=== PATIENT | female | born 1980 | race Caucasian/White ===

== ENCOUNTER 2019-10-09 14:51 | Outpatient (CLI) | payer OTHER, SELFPAY ==
[2019-10-09 16:22] LABS: Beta HCG Quantitative < 2.39 mIU/ML
== END 2019-10-09 14:52 | disposition home or self-care (01) ==
LOC: ANHLAB 14:55
PROVIDERS: PCP Internal Medicine; Visit Provider Student in an Organized Health Care Education/Training Program
DX: Z30.42 Encounter for surveillance of injectable contraceptive (principal)
CPT/HCPCS: 36415; 84702

== ENCOUNTER 2021-10-27 11:14 | Outpatient (CLI) | payer OTHER, SELFPAY ==
[2021-10-27 19:56] LABS: Hepatitis B Surface Antigen Negative (Negative)
[2021-10-27 20:06] LABS: HIV 1/2 Ab P24 Ag Result Negative (Negative)
[2021-10-27 20:14] LABS: Hepatitis C Virus Antibody Negative (Negative)
[2021-11-01 07:15] LABS: Rapid Plasma Reagin Non-Reactive (NonReactive)
== END 2021-10-27 11:15 | disposition home or self-care (01) ==
LOC: ANHBWCLAB 11:14
PROVIDERS: PCP Internal Medicine; Visit Provider Student in an Organized Health Care Education/Training Program
DX: Z20.2 Contact with and (suspected) exposure to infections with a predominantly sexual mode of transmission (principal)
CPT/HCPCS: 36415; 86592; 86703; 86803; 87340; G0432

== ENCOUNTER 2023-10-25 08:19 | Day surgery (SDC) | payer OTHER, SELFPAY ==
[2023-10-17 09:29] VITALS: BMI 30.3
[2023-10-17 10:27] VITALS: BMI 30.1
[2023-10-25 09:30] VITALS: BP 135/94; PULSE 81; RESP 20; TEMP 36.7; O2SAT 99
--- NOTE | 2023-10-25 09:43 | WPDHPUPDATE1 ---
History and Physical Update Update Date/Time: 10/25/23 09:43 History and Physical has been reviewed, including an updated exam of the patient. There are NO changes in the patient's condition. Risks, benefits, and alternatives have been discussed and questions answered. Patient agrees to proceed with procedure.
[2023-10-25] MEDS: LACTATED RINGERS 1,000 ML 150 ML IV CONT (09:45)
--- NOTE | 2023-10-25 09:54 | WPDANESEPPF ---
Anes - Initial Pre Proc Eval Procedure: Operation Date: 10/25/23 10:30 Proposed Procedures p Colonoscopy - Ernie Escoto MD Date/Time: 10/25/23 09:54 Surgeon: Ernie Escoto MD Pre Op Diagnosis: Left lower quadrant pain, IBS w/constipation, Patient Data Age: 43 Gender: F Height: 1.6 m Weight: 73.1 kg Last Vital Signs Temp 36.7 C 10/25/23 09:30 Pulse 81 10/25/23 09:30 Resp 20 10/25/23 09:30 BP 135/94 H 10/25/23 09:30 Pulse Ox 99 10/25/23 09:30 O2 Del Method Room Air 10/25/23 09:30 Allergies Allergy/AdvReac Type Severity Reaction Status Date / Time morphine Allergy Severe Itching Verified 10/25/23 09:24 Home Medications Medication Instructions Recorded Confirmed Type dicyclomine 10 mg capsule 10 mg PO BID 01/30/20 10/25/23 History cetirizine 10 mg capsule (All Day 10 mg PO DAILY PRN Allergy Symptoms 10/16/23 10/25/23 History Allergy (cetirizine)) sodium,potassium,mag sulfates 17.5 See Rx Instructions PO .COMPLEX 10/17/23 10/25/23 Rx gram-3.13 gram-1.6 gram oral soln #354 mL (Suprep Bowel Prep Kit) Patient hx anesthesia problems: none Family hx anesthesia problems: none Results Review: All pre-operative results and documents have been reviewed as part of the pre-operative evaluation. [facility] Past Medical History Medical History Abnormal CT scan, colon Colitis Diverticulosis Irritable bowel syndrome with constipation Obesity Stomach ulcer Vaginal delivery x 2 Surgical History Surgical History H/O sinus surgery History of dilation and curettage x 3 History of hysterectomy including cervix History of tubal ligation Family History Family History Father Hypertension Family history of congestive heart failure Social History Social History Smoking status: Former smoker Second hand tobacco smoke exposure: No Smoking end date: 09/11/10 Alcohol intake: never Substance use: never Substance use type: does not use Lack of Transportation: No Lack of Food: Never True Current Housing: I Have Housing Concerned About Future Housing: No Difficulty Paying Gas/Electric Bills: No Difficulty Paying for Meds: No Currently Unemployed: No Education: High School Diploma/GED Difficulty w/ Childcare or Family Care: No Living arrangements: with family Spiritual care concerns: No Anes - Eval Final PreProcedure Day of Procedure 10/25/23 09:54 Patient weight: overweight Heart: regular rate and rhythm Lungs: clear to auscultation Airway: Mallampati scale class 1 Neurological: alert and oriented Last oral intake: >/= 8 hours ASA classification: II Emergent: no Anesthetic plan: proceed Anesthesia type and monitoring: general GIVS and standard monitoring Results Review: All pre-operative results and documents have been reviewed as part of the pre-operative evaluation. Informed Consent: The patient's anesthetic plan and its attendant risks and benefits were discussed with the patient/family/POA. Questions were solicited and answers provided to the satisfaction of the patient/family/POA.
[2023-10-25 10:29] VITALS: BP 109/67; PULSE 80; RESP 16; O2SAT 100
--- NOTE | 2023-10-25 10:38 | WPDANESPN ---
Anes - Prog Note Post-Op Date/Time: 10/25/23 10:38 Cardiovascular status: normal Respiratory status: normal Airway patency: baseline Mental status: baseline Post-Op hydration status: normal Vital Signs: Last Vital Signs Temp 36.7 C 10/25/23 09:30 Pulse 81 10/25/23 09:30 Resp 20 10/25/23 09:30 BP 135/94 H 10/25/23 09:30 Pulse Ox 99 10/25/23 09:30 O2 Del Method Room Air 10/25/23 09:30 Pain Score (VAS): 0/10 I/O: Intake & Output 10/24/23 10/25/23 10/25/23 23:59 07:59 15:59 Intake Total 500 Balance 500 Patient Feedback: Patient satisfied with anesthetic care.
[2023-10-25 10:39] VITALS: BP 108/74; PULSE 80; RESP 16; O2SAT 100
[2023-10-25 10:49] VITALS: BP 123/78; PULSE 72; RESP 16; O2SAT 100
== END 2023-10-25 11:05 | disposition home or self-care (01) ==
PROVIDERS: PCP Internal Medicine; Visit Provider Internal Medicine Gastroenterology
PROC: 0DJD8ZZ Inspection of Lower Intestinal Tract, Via Natural or Artificial Opening Endoscopic (ICD-10-PCS; CPT 45378; principal; 2023-10-25 10:30)
DX: R10.32 Left lower quadrant pain (principal); K57.30 Diverticulosis of large intestine without perforation or abscess without bleeding; K64.8 Other hemorrhoids
CPT/HCPCS: 45378

== ENCOUNTER 2024-04-22 07:33 | Outpatient (CLI) | payer OTHER, SELFPAY ==
--- NOTE | ~2024-04-22 | CT_ITS ---
CT abdomen pelvis w con Ordering provider: Kerry Delgado APRN History: 43 years Female with . R10.32 - Left lower quadrant pain . Comparison: None. Technique: CT abdomen and pelvis with IV and without oral contrast. Automated exposure control and it erative reconstruction technique were employed. The dose-length product was 609.18 mGy-cm. 100 mL Omn ipaque 350 was given IV. Findings: VISUALIZED LOWER CHEST: Dependent atelectatic changes. UPPER ABDOMINAL ORGANS: Liver: Hepatomegaly. Hypodensity with faint peripheral enhancement is seen which measures 3 x 2.6 cm most likely represent a hemangioma seen in segment #6. Follow-up advised. Gallbladder: Normal. Spleen: Normal. Stomach/duodenum: Normal. Pancreas: Normal. Adrenals: Normal. Kidneys: Tiny cyst in the right kidney upper pole. PELVIC ORGANS: The bladder is underfilled.. BOWEL AND MESENTERY: Colon: No evidence of diverticulitis. Fecal material is loaded in the colon. No evidence of appendici tis. Small Bowel: Normal. No obstruction. Peritoneum/mesentery: No free air or free fluid. No mesenteric lymphadenopathy. RETROPERITONEUM: Normal aorta. No retroperitoneal lymphadenopathy. MUSCULOSKELETAL: Superficial soft tissues: The superficial soft tissues are normal. Bones: Age appropriate degenerative changes of the spine. IMPRESSION: 1. No acute abdominal process with no evidence of appendicitis, diverticulitis or intestinal obstruc tion. 2. Highly suggestive hemangioma in the liver. Follow-up advised. 3. Constipation. 4. Hepatomegaly Reviewed, dictated and finalized at location A. IMPRESSION: 1. No acute abdominal process with no evidence of appendicitis, diverticulitis or intestinal obstruction. 2. Highly suggestive hemangioma in the liver. Follow-up advised. 3. Constipation. 4. Hepatomegaly
== END 2024-04-22 07:34 | disposition home or self-care (01) ==
PROVIDERS: PCP Internal Medicine; Visit Provider Nurse Practitioner
DX: R16.0 Hepatomegaly, not elsewhere classified (principal); K59.00 Constipation, unspecified
CPT/HCPCS: 74177; Q9967

== ENCOUNTER 2025-02-19 01:23 | Day surgery (SDC) | payer OTHER, SELFPAY ==
[2025-02-07 13:05] VITALS: BMI 27.6
--- OUTSIDE RECORDS SUMMARY | 2025-02-19 01:26 | XMS_ITS | Data Portability ---
Author Organization [facility] [place], Main Office Address [address] [place] [address] Assessment Encounter Date Assessment Date Assessment LastModified by Organization Details LastModified Time 02/02/2023 02/02/2023 This note is dictated and transcribed by [employer]. [employer] Operator variances may occur. Despite proofreading, typographical errors may occur. [email or web address] Not available 02/02/2023 16:53:02 Plan of Treatment Reminders Order Date Submit Date Provider Last Modified By Organization Details Last Modified Time Details Appointments None record ed. Lab None record ed. Referral None record ed. Procedures None record ed. Surgeries None record ed. Imaging XR, foot, 3 or more view 023 02/03/20 23 [email or web address] [facility] [place], [address] [place] [address], [address], 3 16:14:28 XR, foot, 3 or more view 023 02/03/20 23 [email or web address] [facility] [place], [address] [place] [address], [place], [address], 3 16:14:28 Medication Orders None record ed. Patient TargetsNo targets recorded. Patient InstructionsNo instructions recorded. Reason for Referral None Reported. Results Created Date Observation Date Name Description Value Unit Range Abnormal Flag Note LastModifiedBy Organization Detail LastModifiedTime 03/31/20 21 03/31/2021 TSH thyroid-stim ulating hormone 1.050 uIU/m L 0.465- 4.680 Not Available [facility] (Lab) [address] [place], [address], 03/31/2021 18:24:22 03/31/20 21 03/31/2021 T4 FREE free T4 0.88 NG/dL 0.78-2 .19 Not Available [facility] (Lab) [address] [place], [address], 03/31/2021 18:12:50 03/31/2003/31/2021 T3 FREE free T3 3.5 pg/mL 2.77-5 .27 Not Available [facility] (Lab) [address] [place], [address], 03/31/2021 18:12:45 03/31/2003/31/2021 LIPID PANEL cholesterol 179 mg/dL 140-19 9 NIH EDU NSUS RECOM MENDA TION FOR RENAY STERO L: ADULT CHILD LOW RISK: <200 <170 BORDE RLINE : <200- 239 ----- HIGH RISK: >240 >200 Not Available [facility] (Lab) [address] [place], [address], 03/31/2021 18:11:24 03/31/2003/31/2021 LIPID PANEL triglyceride s 169 mg/dL 0-150 high NIH EDU NSUS REPOR T RECOM MENDA TION FOR TRIGL YCERI MORENITA: ADULT CHILD LOW RISK: <150 ----- BODER LINE: 150-1 99 ----- HIGH RISK: >200 ----- Not Available [facility] (Lab) [address] [place], [address], 03/31/2021 18:11:24 03/31/2003/31/2021 LIPID PANEL HDL cholesterol 54 mg/dL 40- Not Available [facility] (Lab) [address] [place], [address], 03/31/2021 18:11:24 03/31/2003/31/2021 LIPID PANEL LDL cholesterol, calculated 91 mg/dL 0-130 NIH EDU NSUS REPOR T RECOM MENDA TIONS FOR LDL: ADULT CHILD LOW RISK <130 <110 (OPTI MAL LDL) <100 ----- BORDE RLINE : 130-1 59 ----- HIGH RISK: >160 >130 A TRIGL YCERI DE RESUL T >400 INVAL IDATE S THE CALCU LATIO N FOR LDL FRACT IONAT ION - THE LDL RESUL T WILL NOT BE REPOR CLAUDETTE. Not Available [facility] (Lab) [address] [place], [address], 03/31/2021 18:11:24 03/31/20 21 03/31/2021 COMPR EHENS MOLLY METAB OLIC PANEL aspartate aminotransfe rase 21 U/L 15-37 Not Available [facility] (Lab) [address] [place], [address], 03/31/2021 18:11:19 03/31/2003/31/2021 COMPR EHENS MOLLY METAB OLIC PANEL GFR >60 Refer ence Range : Ravalli ge GFR Healt hy Adult : >60 mL/mi n/1.7 3 m2 Chron ic Kidne y Disea se: 15-60 mL/mi n/1.7 3 m2 Kidne y Failu re: <15/m L/min /1.73 m2 www.n iddk. nih.g ov MDRD study equat ion hasn' t been valid ated in child paulino <18 yrs of age, pregn ant women , the elder ly >85 yrs of age, or in some racia l or ethni c subgr oups, suc as Hispa nics. Outsi de the valid ated carlos eters , estim ated GFR is less accur ate requi ring clini edward judgm ent on a case by case basis . Clini edward inter preta tion for other races and ages must be made by the clini ludy . Futhe rmore , any of th e limit ation s with the use of serum creat inine relat ed to nutri jong l statu s o r medic ation usage hasn' t accou nted for the MDRD Study equat ion. For perso ns < 18 yrs of age, a pedia tric GFR calcu lator can be locat ed on the [facility] websi te: https ://leticia calzada.sierra guard[facility]/cole mustafa s/kdo qi/gf r_cal culat or Not Available [facility] (Lab) [address] [place], [address], 03/31/2021 18:11:19 03/31/20 21 03/31/2021 COMPR EHENS MOLLY METAB OLIC PANEL alkaline phosphatase 60 U/L 38-126 Not Available [facility] (Lab) [address] [place], [address], 03/31/2021 18:11:19 03/31/2003/31/2021 COMPR EHENS MOLLY METAB OLIC PANEL alanine aminotransfe rase 12 U/L 0-35 Not Available [facility] (Lab) [address] [place], [address], 03/31/2021 18:11:19 03/31/20 21 03/31/2021 COMPR EHENS MOLLY METAB OLIC PANEL bilirubin, total 0.50 mg/dL 0.20-1 .30 Not Available [facility] (Lab) [address] [place], [address], 03/31/2021 18:11:19 03/31/2003/31/2021 COMPR EHENS MOLLY METAB OLIC PANEL calcium 9.0 mg/dL 8.4-10 .2 Not Available [facility] (Lab) [address] [place], [address], 03/31/2021 18:11:19 03/31/2003/31/2021 COMPR EHENS MOLLY METAB OLIC PANEL total protein 6.8 g/dL 6.3-8. 2 Not Available [facility] (Lab) [address] [place], [address], 03/31/2021 18:11:19 03/31/20 21 03/31/2021 COMPR EHENS MOLLY METAB OLIC PANEL albumin 4.2 g/dL 3.4-5. 0 Not Available [facility] (Lab) [address] [place], [address], 03/31/2021 18:11:19 03/31/20 21 03/31/2021 COMPR EHENS MOLLY METAB OLIC PANEL globulin 2.6 g/dL 2.6-4. 2 Not Available [facility] (Lab) [address] [facility], [address], 03/31/2021 18:11:19 03/31/20 21 03/31/2021 COMPR EHENS MOLLY METAB OLIC PANEL A/G ratio 1.6 ratio 1.0-2. 0 Not Available [facility] (Lab) [address] [place], [address], 03/31/2021 18:11:19 03/31/20 21 03/31/2021 COMPR EHENS MOLLY METAB OLIC PANEL carbon dioxide 25 mmol/ L 22-30 Not Available [facility] (Lab) [address] [place], [address], 03/31/2021 18:11:19 03/31/20 21 03/31/2021 COMPR EHENS MOLLY METAB OLIC PANEL sodium 138 mmol/ L 137-14 5 Not Available [facility] (Lab) [address] [place], [address], 03/31/2021 18:11:19 03/31/20 21 03/31/2021 COMPR EHENS MOLLY METAB OLIC PANEL potassium 4.2 mmol/ L 3.5-5. 1 Not Available [facility] (Lab) [address] [place], [address], 03/31/2021 18:11:19 03/31/20 21 03/31/2021 COMPR EHENS MOLLY METAB OLIC PANEL chloride 105 mmol/ L 98-107 Not Available [facility] (Lab) [address] [place], [address], 03/31/2021 18:11:19 03/31/20 21 03/31/2021 COMPR EHENS MOLLY METAB OLIC PANEL agap 12.2 mmol/ L 14-22 low Not Available [facility] (Lab) [address] [place], [address], 03/31/2021 18:11:19 03/31/20 21 03/31/2021 COMPR EHENS MOLLY METAB OLIC PANEL glucose 93 mg/dL 70-99 Not Available [facility] (Lab) [address] [place], [address], 03/31/2021 18:11:19 03/31/20 21 03/31/2021 COMPR EHENS MOLLY METAB OLIC PANEL BUN 13 mg/dL 8-19 Not Available [facility] (Lab) [address] [place], [address], 03/31/2021 18:11:19 03/31/2003/31/2021 COMPR EHENS MOLLY METAB OLIC PANEL creatinine 0.71 mg/dL 0.66-1 .25 Not Available [facility] (Lab) [address] [place], [address], 03/31/2021 18:11:19 03/31/2003/31/2021 CBC/C OMPLE TE BLD COUNT W/DIF F mean RBC HGB concentratio n 34.6 g/dL 31.0-3 6.0 Not Available [facility] (Lab) [address] [place], [address], 03/31/2021 17:42:42 03/31/20 21 03/31/2021 CBC/C OMPLE TE BLD COUNT W/DIF F white blood cells 7.0 x10'3 /uL 4.2-10 .8 Not Available [facility] (Lab) [address] [place], [address], 03/31/2021 17:42:42 03/31/20 21 03/31/2021 CBC/C OMPLE TE BLD COUNT W/DIF F red blood cells 4.48 x10'6 /uL 3.80-5 .20 Not Available [facility] (Lab) [address] [place], [address], 03/31/2021 17:42:42 03/31/20 21 03/31/2021 CBC/C OMPLE TE BLD COUNT W/DIF F hemoglobin 13.8 g/dL 12.0-1 5.6 Not Available [facility] (Lab) [address] [place], [address], 03/31/2021 17:42:42 03/31/2003/31/2021 CBC/C OMPLE TE BLD COUNT W/DIF F hematocrit 39.9 % 35.7-4 5.7 Not Available [facility] (Lab) [address] [place], [address], 03/31/2021 17:42:42 03/31/2003/31/2021 CBC/C OMPLE TE BLD COUNT W/DIF F mean red cell volume 89.1 fL 82.0-9 9.0 Not Available [facility] (Lab) [address] [place], [address], 03/31/2021 17:42:42 03/31/2003/31/2021 CBC/C OMPLE TE BLD COUNT W/DIF F mean red cell hemoglobin 30.8 pg 27.0-3 3.0 Not Available [facility] (Lab) [address] [place], [address], 03/31/2021 17:42:42 03/31/20 21 03/31/2021 CBC/C OMPLE TE BLD COUNT W/DIF F red cell distribution width 11.9 % 11.8-1 5.5 Not Available [facility] (Lab) [address] [place], [address], 03/31/2021 17:42:42 03/31/20 21 03/31/2021 CBC/C OMPLE TE BLD COUNT W/DIF F platelets 256 x10'3 /uL 150-40 0 Not Available [facility] (Lab) [address] [place], [address], 03/31/2021 17:42:42 03/31/20 21 03/31/2021 CBC/C OMPLE TE BLD COUNT W/DIF F mean platelet volume 10.7 fL 9.0-12 .4 Not Available [facility] (Lab) [address] [place], [address], 03/31/2021 17:42:42 03/31/20 21 03/31/2021 CBC/C OMPLE TE BLD COUNT W/DIF F neutrophils 71.9 % 39.0-7 2.0 Not Available [facility] (Lab) [address] [place], [address], 03/31/2021 17:42:42 03/31/20 21 03/31/2021 CBC/C OMPLE TE BLD COUNT W/DIF F lymphocytes 14.6 % 16.0-4 7.0 low Not Available [facility] (Lab) [address] [place], [address], 03/31/2021 17:42:42 03/31/20 21 03/31/2021 CBC/C OMPLE TE BLD COUNT W/DIF F monocytes 7.5 % 5.0-12 .0 Not Available [facility] (Lab) [address] [place], [address], 03/31/2021 17:42:42 03/31/20 21 03/31/2021 CBC/C OMPLE TE BLD COUNT W/DIF F eosinophils 5.2 % 1.0-7. 0 Not Available [facility] (Lab) [address] [facility] [place], [address], 03/31/2021 17:42:42 03/31/2003/31/2021 CBC/C OMPLE TE BLD COUNT W/DIF F basophils 0.4 % 0.0-2. 0 Not Available [facility] (Lab) [address] [place], [address], 03/31/2021 17:42:42 03/31/20 21 03/31/2021 CBC/C OMPLE TE BLD COUNT W/DIF F immature granulocytes 0.4 % 0.00-0 .50 Not Available [facility] (Lab) [address] [place], [address], 03/31/2021 17:42:42 03/31/2003/31/2021 CBC/C OMPLE TE BLD COUNT W/DIF F neutrophils, absolute count 5.01 x10'3 /uL 1.5-8. 0 Not Available [facility] (Lab) [address] [place], [address], 03/31/2021 17:42:42 03/31/20 21 03/31/2021 CBC/C OMPLE TE BLD COUNT W/DIF F lymphocytes, absolute count 1.02 x10'3 /uL 1.07-3 .43 low Not Available [facility] (Lab) [address] [place], [address], 03/31/2021 17:42:42 03/31/2003/31/2021 CBC/C OMPLE TE BLD COUNT W/DIF F monocytes, absolute count 0.52 x10'3 /uL 0.29-0 .99 Not Available [facility] (Lab) [address] [place], [address], 03/31/2021 17:42:42 03/31/20 21 03/31/2021 CBC/C OMPLE TE BLD COUNT W/DIF F eosinophils, absolute count 0.36 x10'3 /uL 0.02-0 .53 Not Available [facility] (Lab) [address] [place], [address], 03/31/2021 17:42:42 03/31/20 21 03/31/2021 CBC/C OMPLE TE BLD COUNT W/DIF F basophils, absolute count 0.03 x10'3 /uL 0.01-0 .08 Not Available [facility] (Lab) [address] [place], [address], 03/31/2021 17:42:42 03/31/20 21 03/31/2021 CBC/C OMPLE TE BLD COUNT W/DIF F immature granulocytes ,absolute 0.03 x10'3 /uL 0.00-0 .05 Not Available [facility] (Lab) [address] [place], [address], 03/31/2021 17:42:42 03/31/20 21 03/31/2021 CBC/C OMPLE TE BLD COUNT W/DIF F nucleated red blood cells 0.0 % -0 Not Available [facility] (Lab) [address] [place], [address], 03/31/2021 17:42:42 03/31/20 21 03/31/2021 CBC/C OMPLE TE BLD COUNT W/DIF F NRBC# 0.00 x10'3 /uL Not Available [facility] (Lab) [address] [place], [address], 03/31/2021 17:42:42 08/18/2008/18/2021 INFLU TATE A/B ANTIG EN RAPID flu A negati ve negati ve Not Available [facility] (Lab) [address] [place], [address], 08/18/2021 13:42:50 08/18/2008/18/2021 INFLU TATE A/B ANTIG EN RAPID flu B negati ve negati ve THIS TEST CAN NOT DISTI NGUIS H INFLU TATE A VIRUS SUBTY PES. ALSO, PLEAS E NOTE THAT A NEGAT MOLLY RESUL T DOES NOT EXCLU DE INFLU TATE VIRUS INFEC TION. IF MORE CONCL USIVE TESTI NG IS ISAURO ED, FOLLO W-UP CONFI RMATO RY TESTI NG WITH RT-PC R IS SUGGE STED. Not Available [facility] (Lab) [address] [place], [address], 08/18/2021 13:42:50 08/18/20 21 08/18/2021 INFLU TATE A/B ANTIG EN RAPID valid QC positi ve Not Available [facility] (Lab) [address] [place], [address], 08/18/2021 13:42:50 08/18/20 21 08/18/2021 INFLU TATE A/B ANTIG EN RAPID lot # [id number] Not Available [facility] (Lab) [address] [place], [address], 08/18/2021 13:42:50 08/18/20 21 08/18/2021 INFLU TATE A/B ANTIG EN RAPID source certified travel counselor swab Not Available [facility] (Lab) [address] [place], [address], 08/18/2021 13:42:50 10/07/19 22 10/07/2021 TSH thyroid-stim ulating hormone 1.400 uIU/m L 0.465- 4.680 Not Available [facility] (Lab) [address] [place], [address], 10/07/2021 13:48:01 10/07/19 22 10/07/2021 T3 FREE free T3 3.5 pg/mL 2.77-5 .27 Not Available [facility] (Lab) [address] [place], [address], 10/07/2021 13:36:18 10/07/19 22 10/07/2021 T4 FREE free T4 1.03 NG/dL 0.78-2 .19 Not Available [facility] (Lab) [address] [place], [address], 10/07/2021 13:36:17 10/07/19 22 10/07/2021 COMPR EHENS MOLLY METAB OLIC PANEL bilirubin, total 0.50 mg/dL 0.20-1 .30 Not Available [facility] (Lab) [address] [facility] [place], [address], 10/07/2021 13:36:06 10/07/19 22 10/07/2021 COMPR EHENS MOLLY METAB OLIC PANEL GFR >60 Refer ence Range : Ravalli ge GFR Healt hy Adult : >60 mL/mi n/1.7 3 m2 Chron ic Kidne y Disea se: 15-60 mL/mi n/1.7 3 m2 Kidne y Failu re: <15/m L/min /1.73 m2 www.n iddk. nih.g ov The MDRD study equat ion has not been valid ated in child paulino <18 years of age; pregn ant women ; the elder ly >85 years of age; or in some racia l or ethni c subgr oups, such as Carline nics. Outsi de the valid ated carlos eters , estim ated GFR is less accur ate, requi ring clini edward judgm ent on a case- by-ca se basis . Clini edward inter preta tion for other races and ages must be made by the clini ludy. The MDRD study equat ion has not been valid ated for the evalu ation of serum creat inine relat ed to nutri jong l statu s or medic ation usage . For perso ns <18 years of age, a pedia tric GFR calcu lator is avail able on the F websi te: https ://leticia w.anita johnsony.o rg/pr ofess ional s/kdo qi/gf r_cal culat or Not Available [facility] (Lab) [address] [facility] [place], [address], 10/07/2021 13:36:06 10/07/19 22 10/07/2021 COMPR EHENS MOLLY METAB OLIC PANEL alkaline phosphatase 65 U/L 38-126 Not Available [facility] (Lab) [address] [place], [address], 10/07/2021 13:36:06 10/07/19 22 10/07/2021 COMPR EHENS MOLLY METAB OLIC PANEL alanine aminotransfe rase 17 U/L 0-35 Not Available [facility] (Lab) [address] [place], [address], 10/07/2021 13:36:06 10/07/19 22 10/07/2021 COMPR EHENS MOLLY METAB OLIC PANEL aspartate aminotransfe rase 22 U/L 15-37 Not Available [facility] (Lab) [address] [place], [address], 10/07/2021 13:36:06 10/07/19 22 10/07/2021 COMPR EHENS MOLLY METAB OLIC PANEL calcium 8.8 mg/dL 8.4-10 .2 Not Available [facility] (Lab) [address] [place], [address], 10/07/2021 13:36:06 10/07/19 22 10/07/2021 COMPR EHENS MOLLY METAB OLIC PANEL total protein 7.2 g/dL 6.3-8. 2 Not Available [facility] (Lab) [address] [place], [address], 10/07/2021 13:36:06 10/07/19 22 10/07/2021 COMPR EHENS MOLLY METAB OLIC PANEL albumin 4.4 g/dL 3.4-5. 0 Not Available [facility] (Lab) [address] [place], [address], 10/07/2021 13:36:06 10/07/19 22 10/07/2021 COMPR EHENS MOLLY METAB OLIC PANEL globulin 2.8 g/dL 2.6-4. 2 Not Available [facility] (Lab) [address] [facility] [place], [address], 10/07/2021 13:36:06 10/07/19 22 10/07/2021 COMPR EHENS MOLLY METAB OLIC PANEL A/G ratio 1.6 ratio 1.0-2. 0 Not Available [facility] (Lab) [address] [place], [address], 10/07/2021 13:36:06 10/07/19 22 10/07/2021 COMPR EHENS MOLLY METAB OLIC PANEL sodium 139 mmol/ L 137-14 5 Not Available [facility] (Lab) [address] [place], [address], 10/07/2021 13:36:06 10/07/19 22 10/07/2021 COMPR EHENS MOLLY METAB OLIC PANEL potassium 4.7 mmol/ L 3.5-5. 1 Not Available [facility] (Lab) [address] [place], [address], 10/07/2021 13:36:06 10/07/19 22 10/07/2021 COMPR EHENS MOLLY METAB OLIC PANEL chloride 108 mmol/ L 98-107 high Not Available [facility] (Lab) [address] [place], [address], 10/07/2021 13:36:06 10/07/19 22 10/07/2021 COMPR EHENS MOLLY METAB OLIC PANEL carbon dioxide 23 mmol/ L 22-30 Not Available [facility] (Lab) [address] [place], [address], 10/07/2021 13:36:06 10/07/19 22 10/07/2021 COMPR EHENS MOLLY METAB OLIC PANEL agap 12.7 mmol/ L 14-22 low Not Available [facility] (Lab) [address] [place], [address], 10/07/2021 13:36:06 10/07/19 22 10/07/2021 COMPR EHENS MOLLY METAB OLIC PANEL glucose 102 mg/dL 70-99 high Not Available [facility] (Lab) [address] [place], [address], 10/07/2021 13:36:06 10/07/19 22 10/07/2021 COMPR EHENS MOLLY METAB OLIC PANEL BUN 13 mg/dL 8-19 Not Available [facility] (Lab) [address] [place], [address], 10/07/2021 13:36:06 10/07/19 22 10/07/2021 COMPR EHENS MOLLY METAB OLIC PANEL creatinine 0.72 mg/dL 0.66-1 .25 Not Available [facility] (Lab) [address] [place], [address], 10/07/2021 13:36:06 10/07/19 22 10/07/2021 LIPID PANEL cholesterol 212 mg/dL 140-19 9 high NIH EDU NSUS RECOM MENDA TION FOR RENAY STERO L: ADULT CHILD LOW RISK: <200 <170 BORDE RLINE : <200- 239 ----- HIGH RISK: >240 >200 Not Available [facility] (Lab) [address] [place], [address], 10/07/2021 13:36:02 10/07/1910/07/2021 LIPID PANEL triglyceride s 72 mg/dL 0-150 NIH EDU NSUS REPOR T RECOM MENDA TION FOR TRIGL YCERI MORENITA: ADULT CHILD LOW RISK: <150 ----- BODER LINE: 150-1 99 ----- HIGH RISK: >200 ----- Not Available [facility] (Lab) [address] [place], [address], 10/07/2021 13:36:02 10/07/19 22 10/07/2021 LIPID PANEL HDL cholesterol 60 mg/dL 40- Not Available [facility] (Lab) [address] [place], [address], 10/07/2021 13:36:02 10/07/19 22 10/07/2021 LIPID PANEL LDL cholesterol, calculated 138 mg/dL 0-130 high NIH EDU NSUS REPOR T RECOM MENDA TIONS FOR LDL: ADULT CHILD LOW RISK <130 <110 (OPTI MAL LDL) <100 ----- BORDE RLINE : 130-1 59 ----- HIGH RISK: >160 >130 A TRIGL YCERI DE RESUL T >400 INVAL IDATE S THE CALCU LATIO N FOR LDL FRACT IONAT ION - THE LDL RESUL T WILL NOT BE REPOR CLAUEDTTE. Not Available [facility] (Lab) [address] [place], [address], 10/07/2021 13:36:02 10/07/19 22 10/07/2021 VITAM IN D 25-HY DROXY [id number] 36.3 NG/mL 30-100 Vitam in D Statu s: Defic ient: <20 ng/mL Insuf ficie nt: 20-29 ng/mL Suffi cient : 30-10 0 ng/mL Not Available [facility] (Lab) [address] [place], [address], 10/07/2021 13:35:54 10/07/19 22 10/07/2021 CBC/C OMPLE TE BLD COUNT W/DIF F hematocrit 42.0 % 35.7-4 5.7 Not Available [facility] (Lab) [address] [place], [address], 10/07/2021 13:05:49 10/07/19 22 10/07/2021 CBC/C OMPLE TE BLD COUNT W/DIF F white blood cells 6.8 x10'3 /uL 4.2-10 .8 Not Available [facility] (Lab) [address] [place], [address], 10/07/2021 13:05:49 10/07/19 22 10/07/2021 CBC/C OMPLE TE BLD COUNT W/DIF F red blood cells 4.64 x10'6 /uL 3.80-5 .20 Not Available [facility] (Lab) [address] [place], [address], 10/07/2021 13:05:49 10/07/19 22 10/07/2021 CBC/C OMPLE TE BLD COUNT W/DIF F hemoglobin 14.3 g/dL 12.0-1 5.6 Not Available [facility] (Lab) [address] [place], [address], 10/07/2021 13:05:49 10/07/19 22 10/07/2021 CBC/C OMPLE TE BLD COUNT W/DIF F mean red cell volume 90.5 fL 82.0-9 9.0 Not Available [facility] (Lab) [address] [place], [address], 10/07/2021 13:05:49 10/07/19 22 10/07/2021 CBC/C OMPLE TE BLD COUNT W/DIF F mean red cell hemoglobin 30.8 pg 27.0-3 3.0 Not Available [facility] (Lab) [address] [place], [address], 10/07/2021 13:05:49 10/07/19 22 10/07/2021 CBC/C OMPLE TE BLD COUNT W/DIF F mean RBC HGB concentratio n 34.0 g/dL 31.0-3 6.0 Not Available [facility] (Lab) [address] [place], [address], 10/07/2021 13:05:49 10/07/19 22 10/07/2021 CBC/C OMPLE TE BLD COUNT W/DIF F red cell distribution width 11.9 % 11.8-1 5.5 Not Available [facility] (Lab) [address] [place], [address], 10/07/2021 13:05:49 10/07/19 22 10/07/2021 CBC/C OMPLE TE BLD COUNT W/DIF F platelets 339 x10'3 /uL 150-40 0 Not Available [facility] (Lab) [address] [place], [address], 10/07/2021 13:05:49 10/07/19 22 10/07/2021 CBC/C OMPLE TE BLD COUNT W/DIF F mean platelet volume 10.5 fL 9.0-12 .4 Not Available [facility] (Lab) [address] [place], [address], 10/07/2021 13:05:49 10/07/19 22 10/07/2021 CBC/C OMPLE TE BLD COUNT W/DIF F neutrophils 58.3 % 39.0-7 2.0 Not Available [facility] (Lab) [address] [place], [address], 10/07/2021 13:05:49 10/07/19 22 10/07/2021 CBC/C OMPLE TE BLD COUNT W/DIF F lymphocytes 26.8 % 16.0-4 7.0 Not Available [facility] (Lab) [address] [place], [address], 10/07/2021 13:05:49 10/07/19 22 10/07/2021 CBC/C OMPLE TE BLD COUNT W/DIF F monocytes 6.6 % 5.0-12 .0 Not Available [facility] (Lab) [address] [place], [address], 10/07/2021 13:05:49 10/07/19 22 10/07/2021 CBC/C OMPLE TE BLD COUNT W/DIF F eosinophils 7.3 % 1.0-7. 0 high Not Available [facility] (Lab) [address] [place], [address], 10/07/2021 13:05:49 10/07/19 22 10/07/2021 CBC/C OMPLE TE BLD COUNT W/DIF F basophils 0.6 % 0.0-2. 0 Not Available [facility] (Lab) [address] [place], [address], 10/07/2021 13:05:49 10/07/19 22 10/07/2021 CBC/C OMPLE TE BLD COUNT W/DIF F immature granulocytes 0.4 % 0.00-0 .50 Not Available [facility] (Lab) [address] [place], [address], 10/07/2021 13:05:49 10/07/19 22 10/07/2021 CBC/C OMPLE TE BLD COUNT W/DIF F neutrophils, absolute count 3.99 x10'3 /uL 1.5-8. 0 Not Available [facility] (Lab) [address] [place], [address], 10/07/2021 13:05:49 10/07/19 22 10/07/2021 CBC/C OMPLE TE BLD COUNT W/DIF F lymphocytes, absolute count 1.83 x10'3 /uL 1.07-3 .43 Not Available [facility] (Lab) [address] [place], [address], 10/07/2021 13:05:49 10/07/19 22 10/07/2021 CBC/C OMPLE TE BLD COUNT W/DIF F monocytes, absolute count 0.45 x10'3 /uL 0.29-0 .99 Not Available [facility] (Lab) [address] [place], [address], 10/07/2021 13:05:49 10/07/19 22 10/07/2021 CBC/C OMPLE TE BLD COUNT W/DIF F eosinophils, absolute count 0.50 x10'3 /uL 0.02-0 .53 Not Available [facility] (Lab) [address] [place], [address], 10/07/2021 13:05:49 10/07/19 22 10/07/2021 CBC/C OMPLE TE BLD COUNT W/DIF F basophils, absolute count 0.04 x10'3 /uL 0.01-0 .08 Not Available [facility] (Lab) [address] [place], [address], 10/07/2021 13:05:49 10/07/19 22 10/07/2021 CBC/C OMPLE TE BLD COUNT W/DIF F immature granulocytes ,absolute 0.03 x10'3 /uL 0.00-0 .05 Not Available [facility] (Lab) [address] [place], [address], 10/07/2021 13:05:49 10/07/19 22 10/07/2021 CBC/C OMPLE TE BLD COUNT W/DIF F nucleated red blood cells 0.0 % -0 Not Available [facility] (Lab) [address] [place], [address], 10/07/2021 13:05:49 10/07/19 22 10/07/2021 CBC/C OMPLE TE BLD COUNT W/DIF F NRBC# 0.00 x10'3 /uL Not Available [facility] (Lab) [address] [place], [address], 10/07/2021 13:05:49 02/29/20 22 02/28/2022 XR, hip, unila teral [facility] [address] [place] [address] Patien t Name: VIRAJ WARNER ion #: [id number] Sex: F : 1979 8 Locati on: RAD Attend ing Physic sara: TOSIN MARINA Orderi ng Physic sara: TOSIN MARINA Exam Date: 4:31 PM Exam Name: XR HIP/PE LVIS RT 2-3V Admitt ing Diagno sis(es ): RADIOL OGY REPORT - FINAL EXAM: XR HIP/PE LVIS RT 2-3V HISTOR Y: low back pain with right hip pain 41-yea r-old female with right hip pain, no known injury . COMPAR ALVA: CT scan of the pelvis dated 2019. TECHNI QUE: AP and frogle g latera l views of the right hip were perfor med. FINDIN GS: No acute fractu re is identi fied about the right hip. No signif icant joint space narrow ing or degene rative change s. IMPRES SELINA: Unrema rkable radiog raphs of the right hip. Page 1 of 2 [facility] Patien t Name: VIRAJ WARNER Access ion #: [id number] Sex: F : 1979 8 Exam Date: 4:31 PM Exam Name: XR HIP/PE LVIS RT 2-3V Admitt ing Diagno sis(es ): Create d and electr onical ly signed by: Randy rosales MD Signed Date: 9:43 PM (CT) Dictat ed by: Randy rosales MD DD: 9:43 PM (CT) DT: 9:43 PM (CT) Page 2 of 2 [facility].[id number] [facility] (Imaging) [address] [place], [address], 11/09/2022 01:51:53 02/29/20 22 02/28/2022 XR, lumba r spine [facility] [address] [place] [address] [phone] Patien t Name: VIRAJ WARNER Access ion #: [id number] Sex: F : 1979 8 Locati on: RAD Attend ing Physic sara: TOSIN MARINA Orderi ng Physic sara: NIRMAL TOSIN [place] Exam Date: 4:31 PM Exam Name: XR L SPINE 4V+ Admitt ing Diagno sis(es ): RADIOL OGY REPORT - FINAL EXAM: XR L SPINE 4V+ HISTOR Y: low back pain with right hip pain 41-yea r-old female with low back pain, no known injury . COMPAR ALVA: CT scan of the abdome n and pelvis dated 2019. TECHNI QUE: Five views of the lumbar spine were perfor med. FINDIN GS: No fractu re or listhe sis of the lumbar spine. There is mild degene rative disc diseas e and facet Arth. The obliqu e films do not demons trate spondy lolysi s. There is fecal retent ion in the colon. IMPRES SELINA: Page 1 of 2 [facility] Patien t Name: VIRAJ WARNER Access ion #: [id number] Sex: F : 1979 8 Exam Date: 4:31 PM Exam Name: XR L SPINE 4V+ Admitt ing Diagno sis(es ): 1. Mild degene rative change s of the lumbar spine withou t eviden ce of fractu re. 2. Fecal retent ion in the colon sugges tive of consti pation . Create d and electr onical ly signed by: Randy rosales MD Signed Date: 9:47 PM (CT) Dictat ed by: Randy rosales MD DD: 9:47 PM (CT) DT: 9:47 PM (CT) Page 2 of 2 [id number] [facility] (Imaging) [address] [place], [address], 11/09/2022 01:51:53 02/03/20 23 XR, foot, 3 or more view No observ ation record ed. [email or web address] [facility] [place] [address], [place], [address], 02/02/2023 16:14:25 02/03/20 23 XR, foot, 3 or more view No observ ation record ed. [email or web address] [facility] [place] [address], [place], [address], 02/02/2023 16:14:21 Result Notes None recorded. Problems Name Problem SNOMED Code Status Onset Date Resolution Date Notes Provider Name and Address Organization Details Recorded Time Irritable bowel syndrome 12091913 Active 2019 Not Available [facility] 3 01:35:25 Pain in right lower limb 571643825 Active 2021 Not Available [facility] 3 01:35:25 Screening for cardiovasc ular system disease Active 2021 Not Available [facility] 3 01:35:25 Abscess of skin and/or subcutaneo us tissue 81209545 Completed Not Available [facility] 3 01:35:25 Upper respirator y infection 65149290 Active 2021 Not Available [facility] 3 01:35:25 Fatigue 66418754 Active 2021 Not Available [facility] 3 01:35:25 Chronic rhinitis 35867059 Active 2020 Not Available [facility] 3 01:35:25 Dystrophia unguium 04912489 Active 2022 Adrian Traore DPM [address] [facility] [address], [place], [address] , [facility] 3 16:10:53 Contractur e of long toe extensor(s ) 291905202 Active 2022 Adrian Traore DPM [address], [place], [address] , [employer] [facility] [employer] [facility] 3 16:12:33 Pain in toe 595484510 Active 2022 Adrian Traore DPM [address], [place], [address] , [employer] [facility] 3 16:12:56 Problem Notes None recorded. Procedures Surgical History Date Name Laterality Status Provider Name and Address Organization Details Recorded Time 02/03/20 Nail Debridement completed Adrian Traore DPM [address], [place], [address], [employer] [facility] [employer] 02/02/2023 16:52:19 03/10/20 20 Hysterectomy completed Not Available [facility] 023 01:20:49 08/13/20 Colonoscopy completed Not Available [facility] 11/10/19 23 01:20:49 destruction of lesion of uterus completed Not Available [facility] 11/09/2022 01:20:49 Tubal Ligation completed Not Available [facility] 11/09/2022 01:20:49 dilation and curettage completed Not Available [facility] 11/09/2022 01:20:49 Imaging Results None recorded. Procedure Notes None recorded. Medical Equipment None Reported. Allergies Allergen ID Allergen Name Allergen Category Reaction Reaction Severity Criticality Documentation Date Start Date Code Code System Note Provider Name and Address Organization Details Recorded Time 2977 morphine medicatio n itching rash severe severe Not available 11/09/2022 7052 RxNorm Not Available [facility] 3 01:51:08 Medications Name Sig Start Date Stop Date Status Note LastModified by Organization Details LastModified Time cyclobenzap rine 10 mg tablet TAKE 1 TABLET BY MOUTH EVERY 8 HOURS active Not Available Not Available No t Available amoxicillin 500 mg capsule TK 1 C PO BID WF active Not Available Not Available No t Available fluconazole 100 mg tablet TAKE 1 TABLET BY MOUTH EVERY DAY 02/28 completed Not Available Not Available Not Available cetirizine 10 mg tablet TAKE 1 TABLET BY MOUTH EVERY DAY active Not Available Not Available No t Available Stool Softener 100 mg capsule active Not Available Not Available Not Available ibuprofen 800 mg tablet active Not Available Not Available Not Available fluconazole 150 mg tablet TAKE 1 TABLET BY MOUTH FOR 1 DOSE THEN REPEAT IN 1 WEEK NEEDED active Not Available Not Available No t Available benzonatate 200 mg capsule TAKE 1 CAPSULE BY MOUTH THREE TIMES DAILY NEEDED FOR COUGH active Not Available Not Available No t Available valacyclovi r 1 gram tablet TAKE 2 TABLETS BY MOUTH EVERY 12 HOURS FOR 1 DAY 02/02 completed Not Available Not Available Not Available hydrocodone 5 mg-acetamin ophen 325 mg tablet TK 1 T PO BID PRF SEVERE PAIN 08/14 completed Not Available Not Available Not Available meloxicam 15 mg tablet Take 1 tablet every day by oral route. 02/02 completed Not Available Not Available Not Available prednisone 20 mg tablet TAKE 3 TABLETS BY MOUTH EVERY DAY FOR 5 DAYS 02/02 completed Not Available Not Available Not Available rizatriptan 10 mg tablet TAKE 1 TABLET BY MOUTH EVERY DAY NEEDED FOR HEADACHE active Not Available Not Available No t Available Zithromax Z-Get 250 mg tablet TAKE 2 TABLETS (500 MG) BY ORAL ROUTE ONCE DAILY FOR 1 DAY THEN 1 TABLET (250 MG) BY ORAL ROUTE ONCE DAILY FOR 4 DAYS 02/02 completed Not Available Not Available Not Available clotrimazol e 1 % vaginal cream INSERT ONE APPLICATO RFUL VAGINALLY AT BEDTIME 10/07 completed Not Available Not Available Not Available metronidazo le 500 mg tablet TAKE 1 TABLET BY MOUTH EVERY 12 HOURS active Not Available Not Available No t Available sulfamethox azole 800 mg-trimetho prim 160 mg tablet TK 2 TS PO BID 07/19 completed Not Available Not Available Not Available acetaminoph en 500 mg tablet active Not Available Not Available Not Available triamcinolo ne acetonide 0.1 % topical cream APPLY TOPICALLY TO THE AFFECTED AREA THREE TIMES DAILY 10/07 completed Not Available Not Available Not Available amoxicillin 500 mg tablet TAKE 1 TABLET BY MOUTH THREE TIMES DAILY active Not Available Not Available No t Available prednisolon e acetate 1 % eye drops,suspe nsion 03/31 completed Not Available Not Available Not Available dicyclomine 20 mg tablet 11/08 completed Not Available Not Available Not Available amitriptyli ne 10 mg tablet 07/19 completed Not Available Not Available Not Available meclizine 25 mg tablet TK 1 T PO Q 8 H PRN 07/19 completed Not Available Not Available Not Available benzonatate 100 mg capsule TAKE 1 CAPSULE BY MOUTH EVERY 8 HOURS NEEDED 02/02 completed Not Available Not Available Not Available cephalexin 500 mg capsule TK ONE C PO BID FOR 10 DAYS 07/19 completed Not Available Not Available Not Available pantoprazol e 40 mg tablet,ayush yed release Take 1 tablet every day by oral route. active Not Available Not Available No t Available dexamethaso ne 4 mg tablet TAKE 2 TABLET BY MOUTH FOR 1 DOSE active Not Available Not Available No t Available ibuprofen 200 mg tablet active Not Available Not Available Not Available azelastine 137 mcg (0.1 %) nasal spray USE 2 SPRAYS IN EACH NOSTRIL TWICE DAILY 10/07 completed Not Available Not Available Not Available ibuprofen 600 mg tablet 11/08 completed Not Available Not Available Not Available polyethylen e glycol 3350 17 gram/dose oral powder 07/19 completed Not Available Not Available Not Available levofloxaci n 500 mg tablet TK 1 T PO QD active Not Available Not Available No t Available levofloxaci n 750 mg tablet TK 1 T PO QD 08/14 completed Not Available Not Available Not Available albuterol sulfate HFA 90 mcg/actuati on aerosol inhaler INHALE 2 PUFFS BY MOUTH EVERY 4 HOURS NEEDED active Not Available Not Available No t Available cefdinir 300 mg capsule Take 1 capsule twice a day by oral route for 7 days. active Not Available Not Available No t Available fluticasone propionate 50 mcg/actuati on nasal spray,suspe nsion 02/02 completed Not Available Not Available Not Available medroxyprog esterone 150 mg/mL intramuscul ar suspension ADM 1 ML IM Q 3 MONTHS active Not Available Not Available No t Available doxycycline hyclate 100 mg tablet 07/19 completed Not Available Not Available Not Available dicyclomine 10 mg capsule 4x a day active Not Available Not Available Not Available loratadine 10 mg tablet Take 1 tablet every day by oral route. 02/02 completed Not Available Not Available Not Available naproxen 500 mg tablet TAKE 1 TABLET BY MOUTH TWICE DAILY FOR PAIN OR FEVER active Not Available Not Available No t Available amoxicillin 875 mg-potassiu m clavulanate 125 mg tablet TAKE 1 TABLET BY MOUTH EVERY 12 HOURS FOR 10 DAYS active Not Available Not Available No t Available oxycodone 5 mg tablet active Not Available Not Available No t Available nitrofurant oin monohydrate /macrocryst als 100 mg capsule TAKE 1 CAPSULE BY MOUTH TWICE DAILY FOR 5 DAYS 02/28 completed Not Available Not Available Not Available Vitamin C 11/18 completed Not Available Not Available Not Available Vitamin D 11/18 completed Not Available Not Available Not Available Align (B.infantis ) 11/18 completed Not Available Not Available Not Available Suprep Bowel Prep Kit 17.5 gram-3.13 gram-1.6 gram oral solution UTD FOLLOWING INSTRUCTI ON 08/14 completed Not Available Not Available Not Available BinaxNOW COVID-19 Ag Self Test kit TEST DIRECTED TODAY 02/02 completed Not Available Not Available Not Available Vitals Date Recorded Body mass index (BMI) Body height Heart rate Body temperature Body weight Systolic blood pressure Diastolic blood pressure Provider Name and Address Organization Details Last Updated DateTime 2 28.5 kg/m2 162.56 cm 84 /min 96.9 [degF] 09498.3 3 g 140 mm[Hg] 80 mm[Hg] Not Available [facility] 3 01:31:45 Date Recorded Body mass index (BMI) Body height Heart rate Body temperature Body weight Systolic blood pressure Diastolic blood pressure Provider Name and Address Organization Details Last Updated DateTime 1 27.5 kg/m2 162.56 cm 66 /min 97.5 [degF] 36915.7 8 g 116 mm[Hg] 60 mm[Hg] Not Available [facility] 3 01:31:45 Date Recorded Body height Heart rate Respiratory rate Oxygen saturation Oxygen saturation in Arterial blood by Pulse oximetry Systolic blood pressure Diastolic blood pressure Provider Name and Address Organization Details Last Updated DateTime 3 162.56 cm 88 /min 14 /min 99 % 99 % 121 mm[Hg] 79 mm[Hg] Yoli Louie Josephine [facility] [facility] 3 15:45:50 Date Recorded Body mass index (BMI) Body height Heart rate Body temperature Body weight Systolic blood pressure Diastolic blood pressure Provider Name and Address Organization Details Last Updated DateTime 2 29 kg/m2 162.56 cm 76 /min 97.2 [degF] 81043.1 1 g 110 mm[Hg] 70 mm[Hg] Not Available [facility] 3 01:31:45 Date Recorded Body mass index (BMI) Body height Heart rate Body temperature Body weight Systolic blood pressure Diastolic blood pressure Provider Name and Address Organization Details Last Updated DateTime 1 29 kg/m2 162.56 cm 84 /min 97.2 [degF] 87761.1 1 g 116 mm[Hg] 72 mm[Hg] Not Available [facility] 3 01:31:45 Social History Question Answer Notes LastModified by Organizat ion Details LastModified Time Tobacco Smoking Status Former Smoker quit 2011 Not Available [facility] 11/09/2022 01:18:01 Do You Have An Advance Directive? No [id number] Information not available 11/09/2022 If You Are , What Was Your Level Of Alcohol Consumption Prior To ? None Information not available 02/02/2023 What Is Your Level Of Caffeine Consumption? Moderate [id number] Information not available 11/09/2022 How Much Tobacco Do You Chew? None MIGRATION.[id number] Information not available 11/09/2022 In The 14 Days Before Symptom Onset, Have You Had Close Contact With A Laboratory-confir med COVID-19 While That Case Was Ill? No [id number] Information not available 11/09/2022 In The 14 Days Before Symptom Onset, Have You Had Close Contact With A Person Who Is Under Investigation For COVID-19 While That Person Was Ill? No [id number] Information not available 11/09/2022 What Type Of Diet Are You Following? REGULAR MIGRATION.[id number] Information not available 11/09/2022 Which Illicit Or Recreational Drugs Have You Used? None [id number].[id number] Information not available 11/09/2022 Are There Any Guns Present In Your Home? Yes [id number] Information not available 11/09/2022 What Was The Date Of Your Most Recent Tobacco Screening? 02/02/2023 Information not available 02/02/2023 Have You Ever Been Counseled For Unhealthy Alcohol Use? No Information not available 02/02/2023 How Much Tobacco Do You Smoke? No MIGRATION.[id number] Information not available 11/09/2022 Do You Use Sunscreen Routinely? Yes MIGRATION.[id number] Information not available 11/09/2022 Has Tobacco Cessation Counseling Been Provided? No Information not available 02/02/2023 Sex: Unknown Functional Status Question Answer Note LastModified by Organizat ion Details LastModified Time Do you use any illicit or recreational drugs? No Information not available 02/02/2023 Do you or have you ever used any other forms of tobacco or nicotine? No Information not available 02/02/2023 What is your level of alcohol consumption? Occasional [id number] Information not available 11/09/2022 Do you or have you ever used smokeless tobacco? 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 Never used electronic cigarettes MIGRATION.[id number] Information not available 11/09/2022 What is your exercise level? Heavy MIGRATION.24666 [id number] Information not available 11/09/2022 Mental Status None recorded. Family History Relationship Description Onset Age of this Age Resolved Age Notes LastModified by Organization Details LastModified Time Father Heart disease [id number] Not available 11/09/2022 01:20:58 Father Chronic obstructive pulmonary disease MIGRATION.357 [id number] Not available 11/09/2022 01:20:58 Father Kidney disease MIGRATION.667 [id number] Not available 11/09/2022 01:20:59 Father Ulcer MIGRATION.852 [id number] Not available 11/09/2022 01:20:59 Father Hypertensive disorder MIGRATION.452 [id number] Not available 11/09/2022 01:20:59 Mother Arthritis MIGRATION.192 [id number] Not available 11/09/2022 01:20:59 Mother Hypertensive disorder MIGRATION.834 [id number] Not available 11/09/2022 01:20:59 Mother Dementia MIGRATION.255 [id number] Not available 11/09/2022 01:20:59 Maternal Grandmother Heart disease MIGRATION.021 [id number] Not available 11/09/2022 01:20:59 Brother Diabetes mellitus MIGRATION.149 [id number] Not available 11/09/2022 01:20:59 Daughter Psoriatic arthritis MIGRATION.263 [id number] Not available 11/09/2022 01:20:59 Father Arthritis Not available 02/02/2023 15:40:15 Medical History Condition Response NERVE DISEASE N BLINDNESS N RHEUMATIC FEVER N KIDNEY STONES N BLADDER PROBLEMS N OTHER # 1 N POLIO N LUNG DISEASE/DISORDER N RADIATION / CHEMOTHERAPY N COPD N Other # 2 N BLOOD DISEASES N SURGERY N EAR OR HEARING PROBLEMS N MUMPS N DEPRESSION (INCLUDING POST ) N BOWEL PROBLEMS Y STROKE/TIA N ULCERS N BENIGN PROSTATIC HYPERPLASIA N MEASLES N MYOCARDIAL INFARCTION N OBESITY N GERD/NAUSEA N ANEURYSM N URINARY/BLADDER/KIDNEY PROBLEMS N INPATIENT PSYCH CARE N CORONARY ARTERY DISEASE (CAD) N ADDICTION CONCERNS N Impotence N ENDOMETRIOSIS N USE OF BLOOD THINNERS N SKIN PROBLEMS N GASTROINTESTINAL DISORDER N PERIPHERAL VASCULAR DISEASE N MUSCLE,JOINT OR BONE PROBLEMS N GASTROINTESTINAL BLEEDING N BLOOD CLOTS N ASTHMA N CATARACTS N ERECTILE DYSFUNCTION N VARICOSITIES N GI PROBLEMS N Low Testosterone N INFERTILITY N AIDS/HIV N LIVER DISEASE N MALE HYPOGONADISM N HYPERTENSION N Deficiency N ANXIETY DISORDER N BLOOD TRANSFUSION N ANEMIA/BLOOD DISORDER N CHRONIC EAR INFECTIONS N BRONCHITIS N TUBERCULOSIS N GLAUCOMA N DIVERTICULITIS N SLEEP APNEA N CHICKENPOX N ALLERGIES/HAYFEVER Y INFECTIOUS DISEASE N PROSTATE N HEART ARRHYTHMIA N INSOMNIA N HIGH CHOLESTEROL / HYPERLIPIDEMIA N HYPERTHYROIDISM N EYE PROBLEMS N NEUROLOGICAL PROBLEMS N EDEMA N CHRONIC PAIN SYNDROME N HYPOTHYROIDISM N CONSTIPATION N CAROTID BLOCKAGE N BACK / NECK PROBLEMS N HAVE YOU BEEN HOSPITALIZED OR SEEN IN [facility] IN THE PAST YEAR ? N ATHEROSCLEROSIS N BREAST PROBLEMS N DIALYSIS N ECZEMA N OSTEOPOROSIS N ARTHRITIS N NO SIGNIFICANT PAST MEDICAL HISTORY N APPENDICITIS N DIABETES, TYPE N BAD TEETH N ENT N HEARTBURN / REFLUX N AUTISM SPECTRUM DISORDER (ASD) N HEPATITIS / LIVER DISEASE N PULMONARY DISEASE N GOUT N SLEEP DISORDER N ALZHEIMER'S DISEASE N Brain Problems N HERPES N DEMENTIA N SEIZURES/EPILEPSY N HEADACHES/MIGRAINES Y VASCULAR DISEASE N PACEMAKER N Blood Disorder N DIZZINESS N KIDNEY DISEASE N HEART DISEASE/HEART PROBLEMS N MULTIPLE SCLEROSIS N CARDIAC ARRHYTHMIA N CANCER: SPECIFY N ANESTHESIA COMPLICATIONS N Gall Stones N ATRIAL FIBRILLATION N PULMONARY EMBOLISM N AUTOIMMUNE DISEASE N Gynecological HistoryNo gynecological history recorded. Obstetrics History GPAL:G 0 P 0 0 0 0 Immunizations Vaccine Type Date Status Note Provider Nam e and Address Organization Details Recorded Time COVID-19, mRNA, LNP-S, PF, 100 mcg/0.5mL dose or 50 mcg/0.25mL dose 03/30/2021 completed Not Available [facility] 04:45:58 Past Encounters Encounter ID Performer Location Encounter Start Date Encounter Closed Date Diagnosis/Indication Diagnosis SNOMED-CT Code Diagnosis ICD10 Code Diagnosis Note [id number] Roberto Marina MD [facility] Internal Med [facility] [address] [address] 11/18/2020 00:00:00 12/05/2020 11:15:45 [id number] Roberto Marina MD [facility] Internal Med [facility] [address] [facility] [address] [address] 03/31/2021 00:00:00 04/03/2021 14:37:50 [id number] Roberto Marina MD [facility] Internal Med [facility] [address] [facility] [address] [address] 10/07/2021 00:00:00 10/10/2021 20:09:16 [id number] Roberto Marina MD [facility] Internal Med [facility] [address] [facility] [address] [address] 02/28/2022 00:00:00 03/07/2022 08:59:00 [id number] Adrian Traore DPM [facility] [place] [address] [facility] [address] [place] [address] 02/02/2023 15:38:25 02/10/2023 09:41:47 Pain in toe 880029735 M79.674 M79.675 Continue wide soft toe box style shoes Dystrophia unguium 83204 009 L60.3 2nd toes bilatdebri ded without incidentwi ll schedule the patient for total avulsion of both 2nd toesoffloa ding Contractur e of long toe extensor(s) 249692072 M62.479 second toes bilaterale ducated on treatment optionspat ient elects to offload the toes Health Concerns Section Related Observation LastModified by Organization Detai ls LastModified Time None Recorded Concern Status LastModified by Organization Details LastModified Time None Recorded Advance Directives Directive N: Payers Encounter Date Sequence Insurance Name Policy Number Policy Vides Covered Member ID Vides Member ID Guarantor Name 02/02/2023 1 [facility] [id number] Viraj Warner [id number] Viraj Warner Notes Date Note Type Note Provider Name and Address Organization Details Recorded Time 02/02/2023 text/html . Patient is a 42-year-old female who presents the office with complaints of thickened painful toenails of both great toes. Patient states this has been a longstanding problem. Patient denies any treatment for this condition. Patient states when she is walking her toenails become painful but denies any redness, drainage to the area. Patient denies any other complaints. Adrian Traore DPM [address] [place] [address], [place], [address], [place] [facility] 02/09/2023 14:04:10 OBGyn Episode No OBEpisode recorded.
--- OUTSIDE RECORDS SUMMARY | 2025-02-19 01:26 | XMS_ITS | Referral Summary ---
Author Organization [facility] Address [address] [place] [address] Care Team Providers Care Internet Marketing Strategist Name Role Phone Roberto Marina MD Primary Care Provider + [phone] Allergies Active Allergy Reactions Criticality Noted Date Comments Cephalexin Hallucinations Medium 03/06/2020 Morphine Itching,Flushing (skin) Low 02/10/2020 Medications dicyclomine (BENTYL) 10 mg capsuleIndicatio ns:Enterocolitis Take 10 mg by mouth 4 (four) times a day 0 Active fluticasone propionate (FLONASE) 50 mcg/actuation nasal sprayIndications :Allergic Rhinitis Administer 2 sprays into affected nostril(s) daily after breakfast 8 Active loratadine 10 mg capsuleIndicatio ns:Allergic Rhinitis Take 10 mg by mouth nightly Active Bifidobacterium infantis (ALIGN) 4 mg capsuleIndicatio ns:colitis Take 4 mg by mouth every other day Active ascorbic mtra-oxchlsfq-id n 1,000 mg powder effervescent in packetIndication s:Vitamin C Deficiency Take 1 packet by mouth daily after breakfast Active ibuprofen (ibuprofen) 200 mg tab/cap Take 3 tablet/capsule (600 mg total) by mouth every 6 (six) hours as needed for pain 30 tablet 0 Active Additional Information Patient not taking.Reported on 04/30/2020 acetaminophen (TYLENOL) 500 mg tablet Take 2 tablets (1,000 mg total) by mouth every 6 (six) hours as needed for pain 30 tablet 0 Active Additional Information Patient not taking.Reported on 04/30/2020 oxyCODONE (ROXICODONE) 5 mg immediate release tabletIndication s:Pain Take 1 tablet (5 mg total) by mouth every 4 (four) hours as needed for pain 15 tablet 0 Active Additional Information Patient not taking.Reported on 04/30/2020 docusate sodium (COLACE) 100 mg capsuleIndicatio ns:constipation Take 1 capsule (100 mg total) by mouth 2 (two) times a day 30 capsule 0 Active Additional Information Patient not taking.Reported on 04/30/2020 Active Problems Problem Noted Date Diagnosed Date Hematometra 02/24/2020 Social History Tobacco Use Types Packs/Day Years Used Date Smoking Tobacco: Former Cigarettes 1.5 21 2012 Smokeless Tobacco: Never Alcohol Use Standard Drinks/Week Comments Yes 0 (1 standard drink = 0.6 oz pur e alcohol) rare Comments No Sex and Gender Information Value Date Recorded Sex Assigned at Not on file Legal Sex Female 3:24 PM CDT Gender Identity Not on file Sexual Orientation Not on file Last Filed Vital Signs Vital Sign Reading Time Taken Comments Blood Pressure 121/80 03/26/2020 11:57 AM CDT Pulse 85 03/26/2020 11:57 AM CDT Temperature 36.6 C (97.8 F) 03/26/2020 11:57 AM CDT Respiratory Rate 17 03/11/2020 7:54 AM CDT Oxygen Saturation 99% 03/26/2020 11:57 AM CDT Inhaled Oxygen Concentration - - Weight 70.3 kg (155 lb) 03/26/2020 11:57 AM CDT Height 162.6 cm (5' 4) 03/26/2020 11:57 AM CDT Body Mass Index 26.61 03/26/2020 11:57 AM CDT Plan of Treatment Not on file Insurance [facility] CHOICE [facility] HMO/PPO Address: [facility] [address] [place] [address] Advance Directives For more information, please contact: [phone] * Full Code (Latest Code Status on File) Date Activated Date Inactivated Comments 03/10/2020 4:06 PM 03/11/2020 2:50 PM Care Teams Internet Marketing Strategist Relationship Specialty Start Date End Date Roberto Marina MD PCP - General Internal Medicine 02/20/20
--- OUTSIDE RECORDS SUMMARY | 2025-02-19 01:26 | XMS_ITS | Encounter Summary ---
Author Organization [facility] Address [address] [place] [address] Care Team Providers Care Dust Handler Name Role Phone Michael Ray MD Primary Care Provider [phone] Placido Pope MD Primary Care Provider [phone] Analy Alejo MD Unavailable Encounter Details Date Type Department Care Team (Late st Contact Info) Description 01/31/2018 Telephone [facility] [address] [address] Michael Ray MD [address] [place] [address] Social History Tobacco Use Types Packs/Day Years Used Date Smoking Tobacco: Never Smokeless Tobacco: Never Alcohol Use Standard Drinks/Week Comments No 0 (1 standard drink = 0.6 oz pur e alcohol) Comments No Sex and Gender Information Value Date Recorded Sex Assigned at Not on file Legal Sex Female 5:20 PM SERVICES REP Gender Identity Not on file Sexual Orientation Not on file documented as of this encounter Miscellaneous Notes * Telephone Encounter - Vandana Nieves RN - 01/31/2018 1:02 PM CDT Telephone call from patient. Patient is requesting her lab results. This nurse advised that she would send a message to the MD requesting the results be released. documented in this encounter Plan of Treatment Not on file documented as of this encounter Visit Diagnoses Not on filedocumented in this encounter Care Teams Dust Handler Relationship Specialty Start Date End Date Michael Ray MD PCP - General 04/05/16 06/24/19 Placido Pope MD [address] [place] [address] PCP - General 06/25/19 Analy Alejo MD [address] [place] [address] Resident - PCP Student Resident 06/25/19 documented as of this encounter
--- OUTSIDE RECORDS SUMMARY | 2025-02-19 01:26 | XMS_ITS | Clinical Summary ---
Author Organization [facility] Address [address] [facility] [place] [address] Care Team Providers Care Assembler Type Bar And Segment Name Role Phone Placido Pope MD Primary Care Provider [phone] Analy Alejo MD Unavailable Source Comments [facility],non-owned Affiliates and Associated Physician Practices is amultiple site organization consisting of ambulatory clinics and hospital sitesin [place], [place], [place] and [place]. This disclosure is being madepursuant to the Care Everywhere program and may not contain all information available regarding this patient. Last updated 18.[facility] Allergies No known active allergies Medications * Be aware that medications may not be up to date on this document. Alwaysverify current medications with the patient. fluticasone propionate (FLONASE) 50 MCG/ACT nasal spray Diboll 1 spray into each nostril once daily 16 g 11 8 Active Montelukast Sodium (SINGULAIR PO) Take by mouth once daily Active polyethylene glycol 3350 (MIRALAX) powderIndication s:Constipation, unspecified constipation type Take 17 g by mouth 2 times daily as needed for Constipation 1 capful dissolved in 4-8 oz water or juice daily 527 g 9 Active Active Problems Problem Noted Date Diagnosed Date Migraine with aura and witho ut status migrainosus, not intractable 07/17/2017 Carpal tunnel syndrome of right wrist 07/17/2017 Other insomnia 07/17/2017 Family History Medical History Relation Name Comments CVA Brother COPD - Chronic Obstructive Pulmonary Disease Father Heart Disease Father Hypertension Mother Hypertension Sister Relation Name Status Comments Brother Father Mother Sister Social History Tobacco Use Types Packs/Day Years Used Date Smoking Tobacco: Never Smokeless Tobacco: Never Alcohol Use Standard Drinks/Week Comments No 0 (1 standard drink = 0.6 oz pur e alcohol) Comments No Sex and Gender Information Value Date Recorded Sex Assigned at Not on file 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 Gender Identity Not on file Sexual Orientation Not on file Last Filed Vital Signs Vital Sign Reading Time Taken Comments Blood Pressure 120/82 06/25/2019 1:08 PM CDT Pulse 68 06/25/2019 1:08 PM CDT Temperature 37.1 C (98.8 F) 06/25/2019 1:08 PM CDT Respiratory Rate 16 06/25/2019 1:08 PM CDT Oxygen Saturation 99% 07/17/2017 3:22 PM ASSISTANT SOFTBALL COACH Inhaled Oxygen Concentration - - Weight 67.6 kg (149 lb) 06/25/2019 1:08 PM CDT Height 161.3 cm (5' 3.5) 04/05/2016 1:03 PM CDT Body Mass Index 25.98 04/05/2016 1:03 PM CDT Plan of Treatment Health Maintenance Due Date Last Done Comments MAMMOGRAM 1980 HEPATITIS C SCREENING 05/13/1998 DTAP/TDAP/TD VACCINES (1 - Tdap) 1999 HEPATITIS B VACCINE (1 of 3 - 19+ 3-dose series) 1999 LIPID TESTING 04/06/2021 04/06/2016 COVID-19 VACCINE ( - 2023-2 5 season) 2024 DEPRESSION SCREENING 09/11/2024 INFLUENZA VACCINE (Season Ended) 2025 ZOSTER VACCINE (1 of 2) 2030 HIV SCREENING Completed 01/29/2018 HIB VACCINE Aged Out No longer eligi ble based on patient's age to complete this topic HPV VACCINE Aged Out No longer eligi ble based on patient's age to complete this topic MENINGOCOCCAL (Group B) VACC INE SHARED DECISION-MAKING Aged Out No longer eligibl e based on patient's age to complete this topic MENINGOCOCCAL GROUPS A/C/Y/W VACCINE Aged Out No longer eligible b ased on patient's age to complete this topic PNEUMOCOCCAL VACCINE Aged Out No long er eligible based on patient's age to complete this topic Procedures Procedure Name Priority Date/Time Associated Diagnosis Comments HIV-1 HIV-2 ANTIGEN/ANTIBODY Routine 01/29/2018 4:54 PM CDT Tongue coating LIPID PROFILE Routine 04/06/2016 9:51 AM CDT from Last 3 Months or Most Recently Relevant to Health Maintenance Results * HIV-1 HIV-2 ANTIGEN/ANTIBODY (01/29/2018 4:54 PM CDT) HIV Antigen/Antibod y 1 & 2 Non-reacti ve Non-react debora 01/29/2018 6:11 PM CDT [facility] Comment: Neither HIV-1 p24 Antigen nor HIV-1/HIV-2 Antibodies are detected. Blood BLOOD SPECIMEN / Unknown Lab Venipuncture / Unknown 01/29/2018 4:54 PM CDT 01/29/2018 5:23 PM CDT Priya Blanco BOOK PUBLISHER-EDITOR INDEX LAB - HEMATOL OGY ORDERABLES Final Result [address] [phone] * (ABNORMAL) LIPID PROFILE (04/06/2016 9:51 AM CDT) Cholesterol Total 165 <200 mg/dL [facility] HDL 40(L) >40 mg/dL [facility] Comment: ATP III Classification of HDL Cholesterol: <40 mg/dL: Considered a major risk factor. >60 mg/dL: Considered a negative risk factor. LDL Calculated 110(H) <100 mg/dL [facility] Comment: ATP III Classification of LDL Cholesterol: <100 mg/dL: Optimal 100 - 129 mg/dL: Near Optimal/Above Optimal 130 - 159 mg/dL: Borderline High 160 - 189 mg/dL: High >190 mg/dL: Very High Triglycerides 74 <150 mg/dL [facility] Comment: ATP III Classification of Triglycerides: <150 mg/dL: Normal 150 - 199 mg/dL: Borderline High 200 - 400 mg/dL: High >500 mg/dL: Very High Blood specimen (specimen) BLOOD SPECIMEN / Unknown 04/06/2016 9:51 AM CDT 04/06/2016 10:13 AM CDT Bety Valladares MD LAB - CHEMISTRY ORDERABLES Kristen hernandez Result Performing Organization Address City/State/[facility] Co de Phone Number [address] [phone] from Last 3 Months or Most Recently Relevant to Health Maintenance Insurance [facility] MEDICAID - OUT OF STATE [facility] Care Teams Assembler Type Bar And Segment Relationship Specialty Start Date End Date Placido Pope MD [address] [place] [address] PCP - General 06/25/19 Analy Alejo MD [address] [place] [address] Resident - PCP Student Resident 06/25/19
--- OUTSIDE RECORDS SUMMARY | 2025-02-19 01:26 | XMS_ITS | Data Portability ---
Author Organization [facility] [address] [facility] 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 Rhinitis. Ceftin for 3 weeks to see if we can sterilize the sinuses if not improved ENT versus a CT scan of the sinuses we will add Singulair as well for her sinus drainage follow up 3 weeks [email or web address] Not available 05/14/2024 23:19:03 01/16/2025 01/16/2025 Pantoprazole Headache stable Workup odynophagia with upper endoscopy and start Protonix STD workup Blood pressure up a little bit but she has got some anxiety because of some social situations Follow up 6 weeks [email or web address] Not available 02/03/2025 12:46:03 Plan of Treatment Reminders Order Date Submit Date Provider Last Modified By Organization Details Last Modified Time Details Appointments ANY 15 2024 02:30P M Man Marina MD Not available Not available Not available Lab lipid panel, serum 2024 025 [facility], [address], [address], [place], [address], 01/18/2025 19:07:33 CMP, serum or plasma 2024 025 MIKIE [facility], [address] [facility] [address], [address], [place], [address], 01/18/2025 19:07:35 CBC w/ auto diff 2024 025 [facility] [address], [address], [place], [address], 01/18/2025 19:07:36 herpes simplex virus 1 + 2 IgG panel, serum or plasma 2024 025 [facility], [address] [place], [place] [address], [address], [place], [address], 01/18/2025 19:07:32 HIV 1 + 2 RNA panel, KACIE+probe , serum or plasma 2024 025 [facility], [facility] [address], [address], [place], [address], 01/18/2025 19:07:31 RPR (rapid plasma reagin), serum 2024 025 [facility], [address] [place], [place] [address]bonifacio [address], [address], [place], [address], 01/18/2025 19:07:37 chlamydia trachomat is + neisseria gonorrhoe ae + trichomon as vaginalis DNA panel, KACIE+probe , urine 2024 025 [facility], [facility] [address], [address], [place], [address], 01/25/2025 07:22:43 CMP, serum or plasma 2023 024 [facility], [address], [address], [place], [address], 11/14/2023 15:10:51 CBC w/ auto diff 2023 024 [facility], [address], [address], [place], [address], 11/14/2023 15:10:52 lipid panel, serum 2023 024 [facility], [address], [address], [place], [address], 11/14/2023 15:10:50 Referral None recorded. Procedures upper endoscopy procedure (EGD) (PROC) 2024 025 [facility], [address], [address], [place], [address], 02/17/2025 15:06:58 Surgeries None recorded. Imaging MRI, brain, w/o contrast 2023 024 [facility], [address], [place], [address], 03/25/2024 18:25:26 Medication Orders Protonix 40 mg tablet,de layed release 2024 025 [id number] [id number], [address] , [place], [place], [id number], 01/16/2025 18:01:24 cefuroxim e axetil 500 mg tablet 2023 025 [facility][id number], [address] , [place], [place], [id number], 01/16/2025 16:13:29 Singulair 10 mg tablet 2023 024 [facility][id number], [address], [place], [place], [id number], 01/16/2025 16:13:31 Zofran 4 mg tablet 2023 024 [email or web address] [facility][id number], [address], [place], [place], [id number], 02/03/2025 12:44:15 rizatript an 10 mg tablet 2023 024 [email or web address] [facility][id number], [address], [place], [place], [id number], 08/22/2024 14:46:10 Patient TargetsNo targets recorded. Patient Instructions Encounter Date Encounter Id Patient Instructions Last Modified By Organization Details Last Modified Time 05/14/2024 [id number] A healthy lifestyle: care instructions Not available 05/19/2024 12:10:00 01/16/2025 [id number] A healthy lifestyle: care instructions [email or web address] Not available 01/16/2025 18:01:24 Reason for Referral None Reported. Results Created Date Observation Date Name Description Value Unit Range Abnormal Flag Note LastModifiedBy Organization Detail LastModifiedTime 11/13/1911/14/2023 LIPID PANEL cholesterol, total 174 mg/dL 100-19 9 Not Available [facility] ([facility]) [address], [place], [address], 11/14/2023 15:10:50 11/13/1911/14/2023 LIPID PANEL triglyceride s 141 mg/dL 0-149 Not Available [facility] ([facility]) [address], [place], [address], 11/14/2023 15:10:50 11/13/1911/14/2023 LIPID PANEL HDL cholesterol 54 mg/dL >39 Not Available [facility] ([facility]) [address], [place], [address], 11/14/2023 15:10:50 11/13/19 24 11/14/2023 LIPID PANEL VLDL cholesterol edward 25 mg/dL 5-40 Not Available [facility] ([facility]) [address] [place], [address], 11/14/2023 15:10:50 11/13/19 24 11/14/2023 LIPID PANEL LDL chol calc ([facility]) 95 mg/dL 0-99 Not Available [facility] ([facility]) [address] [place], [address], 11/14/2023 15:10:50 11/13/19 24 11/14/2023 COMP. METAB OLIC PANEL (14) glucose 93 mg/dL 70-99 Not Available [facility] ([facility]) [address] [place], [address], 11/14/2023 15:10:51 11/13/19 24 11/14/2023 COMP. METAB OLIC PANEL (14) BUN 16 mg/dL 6-24 Not Available [facility] ([facility]) [address] [place], [address], 11/14/2023 15:10:51 11/13/19 24 11/14/2023 COMP. METAB OLIC PANEL (14) creatinine 0.73 mg/dL 0.57-1 .00 Not Available [facility] ([facility]) [address] [place], [address], 11/14/2023 15:10:51 11/13/19 24 11/14/2023 COMP. METAB OLIC PANEL (14) eGFR 105 mL/mi n/1.7 3 >59 Not Available [facility] ([facility]) [address] [place], [address], 11/14/2023 15:10:51 11/13/19 24 11/14/2023 COMP. METAB OLIC PANEL (14) BUN/creatini ne ratio 22 9-23 Not Available [facility] ([facility]) [address] [facility] [place], [address], 11/14/2023 15:10:51 11/13/19 24 11/14/2023 COMP. METAB OLIC PANEL (14) sodium 139 mmol/ L 134-14 4 Not Available [facility] ([facility]) [address] [facility] [place], [address], 11/14/2023 15:10:51 11/13/19 24 11/14/2023 COMP. METAB OLIC PANEL (14) potassium 4.4 mmol/ L 3.5-5. 2 Not Available [facility] ([facility]) [address] [facility] [place], [address], 11/14/2023 15:10:51 11/13/19 24 11/14/2023 COMP. METAB OLIC PANEL (14) chloride 107 mmol/ L 96-106 above high normal Not Available [facility] ([facility]) [address] [facility] [place], [address], 11/14/2023 15:10:51 11/13/19 24 11/14/2023 COMP. METAB OLIC PANEL (14) carbon dioxide, total 19 mmol/ L 20-29 below low normal Not Available [facility] ([facility]) [address] [facility] [place], [address], 11/14/2023 15:10:51 11/13/19 24 11/14/2023 COMP. METAB OLIC PANEL (14) calcium 8.6 mg/dL 8.7-10 .2 below low normal Not Available [facility] ([facility]) [address] [facility] [place], [address], 11/14/2023 15:10:51 11/13/19 24 11/14/2023 COMP. METAB OLIC PANEL (14) protein, total 6.5 g/dL 6.0-8. 5 Not Available [facility] ([facility]) [address] [place], [address], 11/14/2023 15:10:51 11/13/19 24 11/14/2023 COMP. METAB OLIC PANEL (14) albumin 4.2 g/dL 3.9-4. 9 Not Available [facility] ([facility]) [address], [place], [address], 11/14/2023 15:10:51 11/13/19 24 11/14/2023 COMP. METAB OLIC PANEL (14) globulin, total 2.3 g/dL 1.5-4. 5 Not Available [facility] ([facility]) [address] [facility] [place], [address], 11/14/2023 15:10:51 11/13/19 24 11/14/2023 COMP. METAB OLIC PANEL (14) A/G ratio 1.8 1.2-2. 2 Not Available [facility] ([facility]) [address], [place], [address], 11/14/2023 15:10:51 11/13/19 24 11/14/2023 COMP. METAB OLIC PANEL (14) bilirubin, total <0.2 mg/dL 0.0-1. 2 Not Available [facility] ([facility]) [address] [facility] [place], [address], 11/14/2023 15:10:51 11/13/19 24 11/14/2023 COMP. METAB OLIC PANEL (14) alkaline phosphatase 66 IU/L 44-121 Not Available [facility] [address], [place], [address], 11/14/2023 15:10:51 11/13/19 24 11/14/2023 COMP. METAB OLIC PANEL (14) AST (SGOT) 15 IU/L 0-40 Not Available [facility] ([facility]) [address], [place], [address], 11/14/2023 15:10:51 11/13/19 24 11/14/2023 COMP. METAB OLIC PANEL (14) ALT (SGPT) 12 IU/L 0-32 Not Available [facility] ([facility]) [address], [place], [address], 11/14/2023 15:10:51 11/13/19 24 11/14/2023 CBC WITH DIFFE RENTI AL/PL ATELE T WBC 8.1 x10e3 /uL 3.4-10 .8 Not Available [facility] ([facility]) [address], [place], [address], 11/14/2023 15:10:52 11/13/19 24 11/14/2023 CBC WITH DIFFE RENTI AL/PL ATELE T RBC 4.12 x10e6 /uL 3.77-5 .28 Not Available [facility] ([facility]) [address], [place], [address], 11/14/2023 15:10:52 11/13/19 24 11/14/2023 CBC WITH DIFFE RENTI AL/PL ATELE T hemoglobin 12.6 g/dL 11.1-1 5.9 Not Available [facility] ([facility]) [address], [place], [address], 11/14/2023 15:10:52 11/13/19 24 11/14/2023 CBC WITH DIFFE RENTI AL/PL ATELE T hematocrit 36.5 % 34.0-4 6.6 Not Available [facility] ([facility]) [address], [place], [address], 11/14/2023 15:10:52 11/13/19 24 11/14/2023 CBC WITH DIFFE RENTI AL/PL ATELE T MCV 89 fL 79-97 Not Available [facility] ([facility]) [address], [place], [address], 11/14/2023 15:10:52 11/13/19 24 11/14/2023 CBC WITH DIFFE RENTI AL/PL ATELE T MCH 30.6 pg 26.6-3 3.0 Not Available [facility] ([facility]) [address], [place], [address], 11/14/2023 15:10:52 11/13/19 24 11/14/2023 CBC WITH DIFFE RENTI AL/PL ATELE T MCHC 34.5 g/dL 31.5-3 5.7 Not Available [facility] ([facility]) [address], [place], [address], 11/14/2023 15:10:52 11/13/19 24 11/14/2023 CBC WITH DIFFE RENTI AL/PL ATELE T RDW 12.3 % 11.7-1 5.4 Not Available [facility] ([facility]) [address], [place], [address], 11/14/2023 15:10:52 11/13/19 24 11/14/2023 CBC WITH DIFFE RENTI AL/PL ATELE T platelets 320 x10e3 /uL 150-45 0 Not Available [facility] ([facility]) [address], [place], [address], 11/14/2023 15:10:52 11/13/19 24 11/14/2023 CBC WITH DIFFE RENTI AL/PL ATELE T neutrophils 58 % notest ab. Not Available [facility] ([facility]) [address], [place], [address], 11/14/2023 15:10:52 11/13/19 24 11/14/2023 CBC WITH DIFFE RENTI AL/PL ATELE T lymphs 31 % notest ab. Not Available [facility] ([facility]) [address], [place], [address], 11/14/2023 15:10:52 11/13/19 24 11/14/2023 CBC WITH DIFFE RENTI AL/PL ATELE T monocytes 6 % notest ab. Not Available [facility] ([facility]) [address], [place], [address], 11/14/2023 15:10:52 11/13/19 24 11/14/2023 CBC WITH DIFFE RENTI AL/PL ATELE T eos 5 % notest ab. Not Available [facility] ([facility]) [address], [place], [address], 11/14/2023 15:10:52 11/13/19 24 11/14/2023 CBC WITH DIFFE RENTI AL/PL ATELE T basos 0 % notest ab. Not Available [facility] ([facility]) [address], [place], [address], 11/14/2023 15:10:52 11/13/19 24 11/14/2023 CBC WITH DIFFE RENTI AL/PL ATELE T neutrophils (absolute) 4.6 x10e3 /uL 1.4-7. 0 Not Available [facility] ([facility]) [address], [place], [address], 11/14/2023 15:10:52 11/13/19 24 11/14/2023 CBC WITH DIFFE RENTI AL/PL ATELE T lymphs (absolute) 2.5 x10e3 /uL 0.7-3. 1 Not Available [facility] ([facility]) [address], [place], [address], 11/14/2023 15:10:52 11/13/19 24 11/14/2023 CBC WITH DIFFE RENTI AL/PL ATELE T monocytes(ab solute) 0.5 x10e3 /uL 0.1-0. 9 Not Available [facility] ([facility]) [address], [place], [address], 11/14/2023 15:10:52 11/13/19 24 11/14/2023 CBC WITH DIFFE RENTI AL/PL ATELE T eos (absolute) 0.4 x10e3 /uL 0.0-0. 4 Not Available [facility] ([facility]) [address], [place], [address], 11/14/2023 15:10:52 11/13/19 24 11/14/2023 CBC WITH DIFFE RENTI AL/PL ATELE T baso (absolute) 0.0 x10e3 /uL 0.0-0. 2 Not Available [facility] ([facility]) [address] [facility] [address], [place], [address], 11/14/2023 15:10:52 11/13/19 24 11/14/2023 CBC WITH DIFFE RENTI AL/PL ATELE T immature granulocytes 0 % notest ab. Not Available [facility] ([facility]) [address] [facility], [place], [address], 11/14/2023 15:10:52 11/13/19 24 11/14/2023 CBC WITH DIFFE RENTI AL/PL ATELE T immature grans (abs) 0.0 x10e3 /uL 0.0-0. 1 Not Available [facility] ([facility]) [address] [place], [address], 11/14/2023 15:10:52 01/18/20 25 01/18/2025 HIV-1 /HIV- 2 QUALI TATIV E RNA HIV-1 RNA NON REACTI VE nonrea ctive Not Available [facility] ([facility]) [address] [place], [address], 01/18/2025 19:07:31 01/18/20 25 01/18/2025 HIV-1 /HIV- 2 QUALI TATIV E RNA HIV-2 RNA NON REACTI VE nonrea ctive Not Available [facility] ([facility]) [address] [place], [address], 01/18/2025 19:07:31 01/18/20 25 01/18/2025 HSV 1 AND 2 AB, IGG hsv 1 IgG, type spec REACTI VE nonrea ctive abnormal Ple ase note refer ence inter harlan thornton e HSV-1 IgG testi ng perfo rmed using the [employer] HSV-1 IgG assay . Not Available [facility] ([facility]) [address], [place], [address], 01/18/2025 19:07:32 01/18/20 25 01/18/2025 HSV 1 AND 2 AB, IGG hsv 2 IgG, type spec NON REACTI VE nonrea ctive Ple ase note refer ence inter harlan thornton e Curre nt guide lines and recom menda tions do not recom mend routi ne scree denilson for HSV-2 in asymp tomat ic indiv idual s, inclu ding those that are pregn ant. The detec tion of HSV-2 IgG antib odies in a singl e sampl e indic ates previ ous expos ure to HSV-2 but does not give infor matio n as to the site of HSV infec tion or the timin g of expos ure. The predi ctive value of posit debora and negat debora resul ts depen ds on the popul ation 's preva lence and the prete st likel ihood of HSV-2 . HSV-2 IgG testi ng perfo rmed using the [employer] HSV-2 IgG assay . Not Available [facility] ([facility]) [address] [facility], [place], [address], 01/18/2025 19:07:32 01/18/20 25 01/18/2025 LIPID PANEL cholesterol, total 165 mg/dL 100-19 9 Not Available [facility] ([facility]) [address] [facility], [place], [address], 01/18/2025 19:07:33 01/18/20 25 01/18/2025 LIPID PANEL triglyceride s 76 mg/dL 0-149 Not Available [facility] ([facility]) [address] [place], [address], 01/18/2025 19:07:33 01/18/20 25 01/18/2025 LIPID PANEL HDL cholesterol 61 mg/dL >39 Not Available [facility] ([facility]) [address] [place], [address], 01/18/2025 19:07:33 01/18/20 25 01/18/2025 LIPID PANEL VLDL cholesterol edward 14 mg/dL 5-40 Not Available [facility] ([facility]) [address] [place], [address], 01/18/2025 19:07:33 01/18/20 25 01/18/2025 LIPID PANEL LDL chol calc (nih) 90 mg/dL 0-99 Not Available [facility] ([facility]) [address] [place], [address], 01/18/2025 19:07:33 01/18/20 25 01/18/2025 COMP. METAB OLIC PANEL (14) glucose 91 mg/dL 70-99 Not Available [facility] ([facility]) [address] [place], [address], 01/18/2025 19:07:35 01/18/20 25 01/18/2025 COMP. METAB OLIC PANEL (14) BUN 13 mg/dL 6-24 Not Available [facility] ([facility]) [address] [place], [address], 01/18/2025 19:07:35 01/18/20 25 01/18/2025 COMP. METAB OLIC PANEL (14) creatinine 0.82 mg/dL 0.57-1 .00 Not Available [facility] ([facility]) [address] [place], [address], 01/18/2025 19:07:35 01/18/20 25 01/18/2025 COMP. METAB OLIC PANEL (14) eGFR 90 mL/mi n/1.7 3 >59 Not Available [facility] ([facility]) [address] [facility], [place], [address], 01/18/2025 19:07:35 01/18/20 25 01/18/2025 COMP. METAB OLIC PANEL (14) BUN/creatini ne ratio 16 9-23 Not Available [facility] ([facility]) [address] [facility], [place], [address], 01/18/2025 19:07:35 01/18/20 25 01/18/2025 COMP. METAB OLIC PANEL (14) sodium 138 mmol/ L 134-14 4 Not Available [facility] ([facility]) [address] [facility], [place], [address], 01/18/2025 19:07:35 01/18/20 25 01/18/2025 COMP. METAB OLIC PANEL (14) potassium 4.2 mmol/ L 3.5-5. 2 Not Available [facility] ([facility]) [address] [facility], [place], [address], 01/18/2025 19:07:35 01/18/20 25 01/18/2025 COMP. METAB OLIC PANEL (14) chloride 104 mmol/ L 96-106 Not Available [facility] ([facility]) [address] [facility], [place], [address], 01/18/2025 19:07:35 01/18/20 25 01/18/2025 COMP. METAB OLIC PANEL (14) carbon dioxide, total 22 mmol/ L 20-29 Not Available [facility] ([facility]) [address] [place], [address], 01/18/2025 19:07:35 01/18/20 25 01/18/2025 COMP. METAB OLIC PANEL (14) calcium 9.1 mg/dL 8.7-10 .2 Not Available [facility] ([facility]) [address], [place], [address], 01/18/2025 19:07:35 01/18/20 25 01/18/2025 COMP. METAB OLIC PANEL (14) protein, total 6.7 g/dL 6.0-8. 5 Not Available [facility] ([facility]) [address], [place], [address], 01/18/2025 19:07:35 01/18/20 25 01/18/2025 COMP. METAB OLIC PANEL (14) albumin 4.4 g/dL 3.9-4. 9 Not Available [facility] ([facility]) [address], [place], [address], 01/18/2025 19:07:35 01/18/20 25 01/18/2025 COMP. METAB OLIC PANEL (14) globulin, total 2.3 g/dL 1.5-4. 5 Not Available [facility] ([facility]) [address] [facility], [place], [address], 01/18/2025 19:07:35 01/18/20 25 01/18/2025 COMP. METAB OLIC PANEL (14) bilirubin, total 0.4 mg/dL 0.0-1. 2 Not Available [facility] ([facility]) [address] [facility], [place], [address], 01/18/2025 19:07:35 01/18/20 25 01/18/2025 COMP. METAB OLIC PANEL (14) alkaline phosphatase 73 IU/L 44-121 Not Available [facility] ([facility]) [address] [facility], [place], [address], 01/18/2025 19:07:35 01/18/20 25 01/18/2025 COMP. METAB OLIC PANEL (14) AST (SGOT) 15 IU/L 0-40 Not Available [facility] ([facility]) [address] [facility], [place], [address], 01/18/2025 19:07:35 01/18/20 25 01/18/2025 COMP. METAB OLIC PANEL (14) ALT (SGPT) 16 IU/L 0-32 Not Available [facility] ([facility]) [address] [place], [address], 01/18/2025 19:07:35 01/18/20 25 01/17/2025 CBC WITH DIFFE RENTI AL/PL ATELE T WBC 5.5 x10e3 /uL 3.4-10 .8 Not Available [facility] ([facility]) [address] [place], [address], 01/18/2025 19:07:36 01/18/20 25 01/17/2025 CBC WITH DIFFE RENTI AL/PL ATELE T RBC 4.43 x10e6 /uL 3.77-5 .28 Not Available [facility] ([facility]) [address] [place], [address], 01/18/2025 19:07:36 01/18/20 25 01/17/2025 CBC WITH DIFFE RENTI AL/PL ATELE T hemoglobin 13.6 g/dL 11.1-1 5.9 Not Available [facility] ([facility]) [address] [place], [address], 01/18/2025 19:07:36 01/18/20 25 01/17/2025 CBC WITH DIFFE RENTI AL/PL ATELE T hematocrit 41.4 % 34.0-4 6.6 Not Available [facility] ([facility]) [address] [place], [address], 01/18/2025 19:07:36 01/18/20 25 01/17/2025 CBC WITH DIFFE RENTI AL/PL ATELE T MCV 94 fL 79-97 Not Available [facility] ([facility]) [address] [place], [address], 01/18/2025 19:07:36 01/18/20 25 01/17/2025 CBC WITH DIFFE RENTI AL/PL ATELE T MCH 30.7 pg 26.6-3 3.0 Not Available [facility] ([facility]) [address] [facility], [place], [address], 01/18/2025 19:07:36 01/18/20 25 01/17/2025 CBC WITH DIFFE RENTI AL/PL ATELE T MCHC 32.9 g/dL 31.5-3 5.7 Not Available [facility] ([facility]) [address] [facility], [place], [address], 01/18/2025 19:07:36 01/18/20 25 01/17/2025 CBC WITH DIFFE RENTI AL/PL ATELE T RDW 11.8 % 11.7-1 5.4 Not Available [facility] ([facility]) [address] [facility], [place], [address], 01/18/2025 19:07:36 01/18/20 25 01/17/2025 CBC WITH DIFFE RENTI AL/PL ATELE T platelets 297 x10e3 /uL 150-45 0 Not Available [facility] ([facility]) [address] [facility], [place], [address], 01/18/2025 19:07:36 01/18/2001/17/2025 CBC WITH DIFFE RENTI AL/PL ATELE T neutrophils 61 % notest ab. Not Available [facility] ([facility]) [address] [facility], [place], [address], 01/18/2025 19:07:36 01/18/20 25 01/17/2025 CBC WITH DIFFE RENTI AL/PL ATELE T lymphs 26 % notest ab. Not Available [facility] ([facility]) [address] [place], [address], 01/18/2025 19:07:36 01/18/20 25 01/17/2025 CBC WITH DIFFE RENTI AL/PL ATELE T monocytes 7 % notest ab. Not Available [facility] ([facility]) [address] [facility], [place], [address], 01/18/2025 19:07:36 01/18/20 25 01/17/2025 CBC WITH DIFFE RENTI AL/PL ATELE T eos 6 % notest ab. Not Available [facility] ([facility]) [address] [facility], [place], [address], 01/18/2025 19:07:36 01/18/20 25 01/17/2025 CBC WITH DIFFE RENTI AL/PL ATELE T basos 0 % notest ab. Not Available [facility] ([facility]) [address] [facility], [place], [address], 01/18/2025 19:07:36 01/18/20 25 01/17/2025 CBC WITH DIFFE RENTI AL/PL ATELE T neutrophils (absolute) 3.3 x10e3 /uL 1.4-7. 0 Not Available [facility] ([facility]) [address] [facility], [place], [address], 01/18/2025 19:07:36 01/18/20 25 01/17/2025 CBC WITH DIFFE RENTI AL/PL ATELE T lymphs (absolute) 1.4 x10e3 /uL 0.7-3. 1 Not Available [facility] ([facility]) [address] [place], [address], 01/18/2025 19:07:36 01/18/20 25 01/17/2025 CBC WITH DIFFE RENTI AL/PL ATELE T monocytes(ab solute) 0.4 x10e3 /uL 0.1-0. 9 Not Available [facility] ([facility]) [address] [place], [address], 01/18/2025 19:07:36 01/18/20 25 01/17/2025 CBC WITH DIFFE RENTI AL/PL ATELE T eos (absolute) 0.3 x10e3 /uL 0.0-0. 4 Not Available [facility] ([facility]) [address] [place], [address], 01/18/2025 19:07:36 01/18/20 25 01/17/2025 CBC WITH DIFFE RENTI AL/PL ATELE T baso (absolute) 0.0 x10e3 /uL 0.0-0. 2 Not Available [facility] ([facility]) [address] [place], [address], 01/18/2025 19:07:36 01/18/20 25 01/17/2025 CBC WITH DIFFE RENTI AL/PL ATELE T immature granulocytes 0 % notest ab. Not Available [facility] ([facility]) [address] [place], [address], 01/18/2025 19:07:36 01/18/20 25 01/17/2025 CBC WITH DIFFE RENTI AL/PL ATELE T immature grans (abs) 0.0 x10e3 /uL 0.0-0. 1 Not Available [facility] ([facility]) [address] [place], [address], 01/18/2025 19:07:36 01/18/2001/18/2025 RPR, RFX QN RPR/C ONFIR M TP RPR NON REACTI VE nonrea ctive Not Available [facility] ([facility]) [address] [place], [address], 01/18/2025 19:07:37 01/18/20 25 01/24/2025 CT/GC /TV KACIE+M YCOPL ASMAS URINE mycoplasma genitalium KACIE NEGATI VE negati ve Not Available [facility] ([facility]) [address] [place], [address], 01/25/2025 07:22:43 01/18/20 25 01/24/2025 CT/GC /TV KACIE+M YCOPL ASMAS URINE mycoplasma hominis KACIE NEGATI VE negati ve Not Available [facility] ([facility]) [address] [facility], [place], [address], 01/25/2025 07:22:43 01/18/20 25 01/24/2025 CT/GC /TV KACIE+M YCOPL ASMAS URINE ureaplasma spp KACIE POSITI VE negati ve abnormal Not Available [facility] ([facility]) [address] [place], [address], 01/25/2025 07:22:43 01/18/20 25 01/24/2025 CT/GC /TV KACIE+M YCOPL ASMAS URINE trich vag by KACIE NEGATI VE negati ve Not Available [facility] ([facility]) [address] [facility], [place], [address], 01/25/2025 07:22:43 01/18/20 25 01/24/2025 CT/GC /TV KACIE+M YCOPL ASMAS URINE chlamydia trachomatis, KACIE NEGATI VE negati ve Not Available [facility] ([facility]) [address] [facility], [place], [address], 01/25/2025 07:22:43 01/18/20 25 01/24/2025 CT/GC /TV KACIE+M YCOPL ASMAS URINE neisseria gonorrhoeae, KACIE NEGATI VE negati ve Not Available [facility] ([facility]) [address] [place], [address], 01/25/2025 07:22:43 03/25/20 24 03/22/2024 MRI, brain , w/o contr ast No observ ation record ed. [email or web address] [address], [place], [address], 03/28/2024 12:25:11 04/22/20 24 04/22/2024 CT, abdom en + pelvi s, w/ contr ast No observ ation record ed. [facility] [address], [place], [address], 04/29/2024 15:48:10 Result Notes None recorded. Problems Name Problem SNOMED Code Status Onset Date Resolution Date Notes Provider Name and Address Organization Details Recorded Time Swallowing painful 24417471 Active 2024 Jeremias Boyle [place] null, [place] - [facility] 16:52:44 Overweight 234626388 Active 2024 Jeremias Boyle [place], [place] [facility] 16:52:45 Overweight in adulthood with body mass index of 25 or more but less than 30 665608364 Active 2024 Jeremias Boyle [place], [place] [facility] 16:52:46 Exposure to sexually transmissible disorder Active 2024 Jeremias Boy[place], [place] [facility] 16:53:23 Screening for cardiovascular system disease Active 2024 Jeremias Boyle [place], [place] [facility] 16:53:24 Migraine with aura 6943157 Active 2024 Man Marina MD Attn: Antonieta sow,[address], [place], [address], [place] - [facility] 12:46:23 Problem Notes None recorded. Procedures Surgical History Date Name Laterality Status Provider Name and Address Organization Details Recorded Time Total hysterectomy completed Venus Bain MA [place] - [facility] 11/13/2023 15:22:28 Imaging Results None recorded. Procedure Notes None recorded. Medical Equipment None Reported. Allergies Allergen ID Allergen Name Allergen Category Reaction Reaction Severity Criticality Documentation Date Start Date Code Code System Note Provider Name and Address Organization Details Recorded Time 477687 morphine medicatio n itching Not available low 11/13/20232019 7052 RxNorm unrec ogniz ed react ion (text : Flush ing (skin ), code: 80937 0007) (from exter nal sourc e) YI Quiroz, [place] - [facility] 5 16:09:34 775757 cephalexi n medicatio n hallucina tions Not available [facility] 01/16/202520191 RxNorm YI Quiroz, [place] - [facility] 5 16:09:29 Medications Name Sig Start Date Stop Date Status Note LastModified by Organization Details LastModified Time cyclobenzap rine 10 mg tablet TAKE 1 TABLET BY MOUTH EVERY 8 HOURS NEEDED. CUT IN HALF IF TOO SEDATING 01/16 completed Not Available Not Available Not Available fluconazole 150 mg tablet TAKE 1 TABLET BY MOUTH EVERY 3 DAYS 01/16 completed Not Available Not Available Not Available benzonatate 200 mg capsule TAKE 1 CAPSULE BY MOUTH THREE TIMES DAILY NEEDED 05/14 completed Not Available Not Available Not Available valacyclovi r 1 gram tablet TAKE 2 TABLETS BY MOUTH TWICE DAILY FOR 1 DAY 05/14 completed Not Available Not Available Not Available ondansetron HCl 4 mg tablet TAKE 1 TABLET BY MOUTH TWICE DAILY NEEDED 02/03 completed Not Available Not Available Not Available prednisone 20 mg tablet TAKE 2 TABLETS BY MOUTH DAILY FOR 5 DAYS 05/14 completed Not Available Not Available Not Available rizatriptan 10 mg tablet TAKE 1 TABLET BY MOUTH NEEDED FOR MIGRANE active Not Available Not Available No t Available meclizine 12.5 mg tablet TAKE 1 TABLET BY MOUTH TWICE DAILY NEEDED active Not Available Not Available No t Available valacyclovi r 500 mg tablet TAKE 1 TABLET BY MOUTH TWICE DAILY FOR 7 DAYS 05/14 completed Not Available Not Available Not Available amoxicillin 875 mg tablet TAKE 1 TABLET BY MOUTH EVERY 12 HOURS FOR 10 DAYS 01/16 completed Not Available Not Available Not Available pantoprazol e 40 mg tablet,ayush yed release TAKE 1 TABLET BY MOUTH EVERY DAY active Not Available Not Available No t Available montelukast 10 mg tablet TAKE 1 TABLET BY MOUTH EVERY DAY 01/16 completed Not Available Not Available Not Available cefuroxime axetil 500 mg tablet TAKE 1 TABLET BY MOUTH EVERY 12 HOURS 01/16 completed Not Available Not Available Not Available fluticasone propionate 50 mcg/actuati on nasal spray,suspe nsion SHAKE LIQUID AND USE 1 SPRAY IN EACH NOSTRIL TWICE DAILY active Not Available Not Available No t Available doxycycline hyclate 100 mg tablet TAKE 1 TABLET BY MOUTH TWICE DAILY 01/16 completed Not Available Not Available Not Available naproxen 500 mg tablet TAKE 1 TABLET BY MOUTH TWICE DAILY WITH FOOD 05/14 completed Not Available Not Available Not Available diazepam 5 mg tablet TAKE 1 TABLET BY MOUTH 30 MINUTES BEFORE TEST 05/14 completed Not Available Not Available Not Available amoxicillin 875 mg-potassiu m clavulanate 125 mg tablet TAKE 1 TABLET BY MOUTH EVERY 12 HOURS 01/16 completed Not Available Not Available Not Available amoxicillin 500 mg-potassiu m clavulanate 125 mg tablet TAKE 1 TABLET BY MOUTH EVERY 8 HOURS FOR 10 DAYS 11/12 completed Not Available Not Available Not Available Xifaxan 550 mg tablet TAKE 1 TABLET BY MOUTH THREE TIMES DAILY FOR 14 DAYS 05/14 completed Not Available Not Available Not Available sodium,pota ssium,mag sulfates 17.5 gram-3.13 gram-1.6 gram oral soln TAKE DIRECTED PER DOCTOR FIGUEROA WRITTEN INSTRUCTI ONS THAT WERE MAILED TO YOU 05/14 completed Not Available Not Available Not Available Vitals Date Recorded Body height Body mass index (BMI) Body weight Body temperature Heart rate Respiratory rate Oxygen saturation Oxygen saturation in Arterial blood by Pulse oximetry Systolic blood pressure Diastolic blood pressure Provider Name and Address Organization Details Last Updated DateTime 4 163.83 cm 28.6 kg/m2 81197.4 7 g 98.5 [degF] 87 /min 20 /min 98 % 98 % 142 mm[Hg] 76 mm[Hg] Venus Bain MA [facility] 4 15:15:04 Date Recorded Body height Body mass index (BMI) Body weight Heart rate Oxygen saturation Oxygen saturation in Arterial blood by Pulse oximetry Systolic blood pressure Diastolic blood pressure Provider Name and Address Organization Details Last Updated DateTime 5 163.83 cm 28.6 kg/m2 11292.4 7 g 80 /min 98 % 98 % 140 mm[Hg] 86 mm[Hg] Amina Gonzalez MA [facility] 5 16:09:14 Date Recorded Body height Body mass index (BMI) Body weight Heart rate Oxygen saturation Oxygen saturation in Arterial blood by Pulse oximetry Systolic blood pressure Diastolic blood pressure Provider Name and Address Organization Details Last Updated DateTime 163.83 cm 29.1 kg/m2 09629.3 2 g 89 /min 96 % 96 % 134 mm[Hg] 66 mm[Hg] Poonam Washington MA [place] - [facility] 16:18:32 Social History Question Answer Notes LastModified by [employer] ion Details LastModified Time Tobacco Smoking Status Former Smoker [place], [place] - [facility] 11/13/2023 15:20:10 Do You Have An Advance Directive? No Information not available 11/13/2023 Are You Blind Or Do You Have Difficulty Seeing? No Information not available 11/13/2023 What Is Your Level Of Caffeine Consumption? Moderate Information not available 11/13/2023 Are You Deaf Or Do You Have Serious Difficulty Hearing? No Information not available 11/13/2023 What Type Of Diet Are You Following? REGULAR Information not available 11/13/2023 What Is The Highest Grade Or Level Of School You Have Completed Or The Highest Degree You Have Received? [id number] Information not available 11/13/2023 Are There Any Guns Present In Your Home? No Information not available 11/13/2023 What Was The Date Of Your Most Recent Tobacco Screening? 01/16/2025 Information not available 01/16/2025 What Is Your Relationship Status? Single Information not available 11/13/2023 Do You Use Your Seat Belt Or Car Seat Routinely? Yes Information not available 11/13/2023 Do You Have Smoke And Carbon Monoxide Detectors In Your Home? Yes Information not available 11/13/2023 How Much Tobacco Do You Smoke? 2 PPW Information not available 11/13/2023 Do You Use Sunscreen Routinely? No Information not available 11/13/2023 Has Tobacco Cessation Counseling Been Provided? No Information not available 01/16/2025 Sex: Female Functional Status Question Answer Note LastModified by [employer] ion Details LastModified Time Do you use any illicit or recreational drugs? No Information not available 11/13/2023 Do you or have you ever used any other forms of tobacco or nicotine? No Information not available 01/16/2025 What is your level of alcohol consumption? Occasional Information not available 11/13/2023 Are you currently employed? Yes Information not available 11/13/2023 Are you able to care for yourself? 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 Moderate Information not available 11/13/2023 Mental Status Question Answer Note LastModified by Organization D etails LastModified Time Do you feel stressed (tense, restless, nervous, or anxious, or unable to sleep at night)? [id number] Information not available 11/13/2023 Family History Nothing Reported. Medical History Condition Response Coronary Artery Disease N High Blood Pressure N Atrial Fibrillation N Kidney or Bladder Problems N GI Problems Y Depression N COPD N Blood Clots N Skin Problems N Anemia N Heart Attack ([place]) N Diabetes N Anxiety Disorder N Muscle, Joint, or Bone Problems N Seizures/Epilepsy N Acid Reflux (GERD) N Cancer N Stroke N Asthma N Allergies Y High Cholesterol N Hepatitis N Liver Disease N Headaches Y Osteoporosis N Heart Failure N Gynecological HistoryNo gynecological history recorded. Obstetrics History GPAL:G 5 P 2 0 3 2 Type Value Full Term 2 Spontaneous 3 Living 2 Total 5 Immunizations Vaccine Type Date Status Note Provider Nam e and Address Organization Details Recorded Time COVID-19, mRNA, LNP-S, PF, 100 mcg/0.5mL dose or 50 mcg/0.25mL dose 03/30/2021 completed Not Available [facility] 5 15:10:31 COVID-19, mRNA, LNP-S, PF, 100 mcg/0.5mL dose or 50 mcg/0.25mL dose 04/27/2021 completed Not Available [facility] 15:10:31 Past Encounters Encounter ID Performer Location Encounter Start Date Encounter Closed Date Diagnosis/Indication Diagnosis SNOMED-CT Code Diagnosis ICD10 Code Diagnosis Note [id number] Man Marina MD [facility] (Adult Med) [address] [place] [phone] 11/13/2023 14:53:43 11/13/2023 16:36:16 Migraine 45820799 G43.909 Chronic rhinitis 9161266 6 J31.0 Nausea 831777439 R11.0 Screening for cardiovascular system disease 515311129 Z13.6 Renewal of prescription 384966167 Z76.0 [id number] Man Marina MD [facility] (Adult Med) [address] [place] [phone] 05/14/2024 15:17:31 05/14/2024 17:11:52 Sinusitis 83744128 J32.9 Rhinitis 65956782 J00 Overweight 521177035 E66 .3 [id number] Man Marina MD [facility] [address] [place] [address] 01/16/2025 15:08:35 01/16/2025 16:50:57 Overweight in adulthood with body mass index of 25 or more but less than 30 785093927 Z68.28 Overweight 675955951 E66 .3 Swallowing painful 34856 002 R13.10 Exposure t o sexually transmissible disorder 032504095 Z20.2 Screening for cardiovascular system disease 648320637 Z13.6 Migraine with aura 64495 06 G43.109 Health Concerns Section Related Observation LastModified by Organization Detai ls LastModified Time None Recorded Concern Status LastModified by Organization Details LastModified Time None Recorded Advance Directives Directive N: Payers Encounter Date Sequence Insurance Name Policy Number Policy Vides Covered Member ID Vides Member ID Guarantor Name 11/13/2023 1 [facility] [id number] Harriett Tolliver [id number] Harriett Tolliver 05/14/2024 1 [facility] [id number] Harriett Tolliver [id number] Harriett Tolliver 01/16/2025 1 [facility] [id number] Harriett Tolliver [id number] Harriett Tolliver Notes Date Note Type Note Provider Name and Address Organization Details Recorded Time 11/13/2023 text/html Chronic migraine significant burden 10 or more days a month which she uses a triptan as she gets nauseated when she has her headaches would like something for that.Diverticulosis seen on recent colonoscopy and she has been placed on fiber 1Rhinitis seems to be doing fairly well on current nasal steroid Man Marina MD Attn: Accounting,[address] [facility], [place], [address], [facility] 11/13/2023 21:14:39 05/14/2024 text/html ongoing sinus complaints she has been over to urgent Care diagnosed with sinus infection negative for COVID but she is not getting any better despite amoxicillin Man Marina MD Attn: Accounting,[address], [place], [address], [facility] - [facility] 05/19/2024 12:10:03 01/16/2025 text/html Migraine stableOdynophagia for a couple of weeks polyp lb weight loss no burning in her stomach solids and liquids no melena hematocheziaSTD exposure once tested Man Marina MD Attn: Accounting,[address], [place], [address], [facility] - [facility] 02/03/2025 12:46:48 OBGyn Episode No OBEpisode recorded.
--- OUTSIDE RECORDS SUMMARY | 2025-02-19 01:26 | XMS_ITS | Clinical Summary ---
Author Organization [facility] Address [address] [place] [address] Care Team Providers Care Interior Plant Caretaker Name Role Phone Roberto Marina MD Primary Care Provider + [phone] Allergies Active Allergy Reactions Criticality Noted Date [...] by mouth every other day Active ascorbic oxyy-rmymnlmr-qf n 1,000 mg powder effervescent in packetIndication [...] Problem Noted Date Diagnosed Date Hematometra 02/24/2020 Surgical History Surgery Date Site/Laterality Comments ABLATION 09/11/2012 - 09/10/2013 TUBAL LIGATION 09/11/2012 - 09/10/2013 DILATION AND CURETTAGE OF UTERUS Multiple x3 COLONOSCOPY SINUS SURGERY 09/11/2013 - 09/10/2014 Medical History Medical History Date Comments Headache Irritable bowel syndrome Ulcerative colitis (HCC) Family History Medical History Relation Name Comments COPD Father Emphysema Father Hypertension Father Anesthesia problems Neg Hx Relation Name Status Comments Brother Alive Father Mother Alive Social History Tobacco Use Types Packs/Day Years Used Date Smoking Tobacco: Former Cigarettes 1.5 21 1 - 2012 Smokeless Tobacco: Never Alcohol Use Standard Drinks/Week Comments Yes 0 (1 standard drink = 0.6 oz pur e alcohol) rare Comments No Sex and Gender Information Value Date Recorded Sex Assigned at Not on file Legal Sex Female 3:24 PM CDT Gender Identity Not on file Sexual Orientation Not on file Obstetrics History Last Filed Vital Signs Vital Sign Reading [...] Plan of Treatment Not on file Insurance CHO[facility] H[facility]/PPO Address: [place] [address] Advance Directives For more information, please contact: [phone] * Full Code (Latest Code Status on File) Date Activated Date Inactivated Comments 03/10/2020 4:06 PM 03/11/2020 2:50 PM Care Teams Interior Plant Caretaker Relationship Specialty Start Date End Date Roberto Marina MD PCP - General Internal Medicine 02/20/20
--- OUTSIDE RECORDS SUMMARY | 2025-02-19 01:26 | XMS_ITS | Encounter Summary ---
Author Organization [facility] Address [address] [place] [address] Care Team Providers Care Dtp Operator Name Role Phone Placido Pope MD Primary Care Provider + -[phone] Analy Alejo MD Unavailable Reason for Visit * Reason Onset Date Comments Appointment 09/30/2019 Encounter Details Date Type Department Care Team (Late st Contact Info) Description 09/30/2019 Telephone [facility] [address] [place] [address] Darleen Vaughan Appointment Social History Tobacco Use Types Packs/Day Years Used Date Smoking Tobacco: Never Smokeless Tobacco: Never Alcohol Use Standard Drinks/Week Comments No 0 (1 standard drink = 0.6 oz pur e alcohol) Comments No Sex and Gender Information Value Date Recorded Sex Assigned at Not on file Legal Sex Female 5:20 PM DIRECTOR OF PHYSICAL EDUCATION Gender Identity Not on file Sexual Orientation Not on file documented as of this encounter Miscellaneous Notes * Telephone Encounter - Darleen Vaughan - 09/30/2019 2:23 PM CST 2nd attempt to call patient to reschedule appointment. No answer vm was left. CTOR OF PHYSICAL EDUCATION documented in this encounter Plan of Treatment Not on file documented as of this encounter Visit Diagnoses Not on filedocumented in this encounter Care Teams Dtp Operator Relationship Specialty Start Date End Date Placido Pope MD [address] [place] [address] PCP - General 06/25/19 Analy Alejo MD [address] [place] [address] Resident - PCP Student Resident 06/25/19 documented as of this encounter
--- OUTSIDE RECORDS SUMMARY | 2025-02-19 01:26 | XMS_ITS | Encounter Summary ---
Author Organization [facility] Address [address] [place] [address] Care Team Providers Care Commercial Solar Sales Consultant Name Role Phone Placido Pope MD Primary Care Provider + [phone] Analy Alejo MD Unavailable Reason for Visit * Reason Onset Date Comments Appointment 08/02/2019 Encounter Details Date Type Department Care Team (Late st Contact Info) Description 08/02/2019 Telephone [facility] [address] [place], [place] [phone] Darleen Vaughan Appointment Social History Tobacco Use Types Packs/Day Years Used Date Smoking Tobacco: Never Smokeless Tobacco: Never Alcohol Use Standard Drinks/Week Comments No 0 (1 standard drink = 0.6 oz pur e alcohol) Comments No Sex and Gender Information Value Date Recorded Sex Assigned at Not on file Legal Sex Female 5:20 PM DREDGE LEVER OPERATOR Gender Identity Not on file Sexual Orientation Not on file documented as of this encounter Miscellaneous Notes * Telephone Encounter - Draleen Vaughan - 08/02/2019 9:30 AM CST 1st attempt to contact this patient to reschedule this appointment. No answer vm was left. GE LEVER OPERATOR documented in this encounter Plan of Treatment Not on file documented as of this encounter Visit Diagnoses Not on filedocumented in this encounter Care Teams Commercial Solar Sales Consultant Relationship Specialty Start Date End Date Placido Pope MD [address] [place] [address] PCP - General 06/25/19 Analy Alejo MD [address] [place] [address] Resident - PCP Student Resident 06/25/19 documented as of this encounter
[2025-02-19 08:10] VITALS: BP 148/90; PULSE 71; RESP 16; TEMP 36.6; O2SAT 100; BMI 30.2
[2025-02-19] MEDS: LACTATED RINGERS 1,000 ML 150 ML IV CONT (08:27)
--- NOTE | 2025-02-19 08:31 | WPDANESEPPF ---
Anes - Initial Pre Proc Eval Procedure: Operation Date: 02/19/25 09:15 Proposed Procedures p Esophagogastroduodenoscopy - Mir Boo MD Date/Time: 02/19/25 08:31 Surgeon: Mir Boo MD Pre Op Diagnosis: Dysphagia, unspecified Patient Data Age: 44 Gender: F Height: 1.63 m Weight: 79.9 kg Last Vital Signs Temp 36.6 C 02/19/25 08:10 Pulse 71 02/19/25 08:10 Resp 16 02/19/25 08:10 BP 148/90 H 02/19/25 08:10 Pulse Ox 100 02/19/25 08:10 O2 Del Method Room Air 02/19/25 08:10 Allergies Allergy/AdvReac Type Severity Reaction Status Date / Time morphine Allergy Severe Itching Verified 02/19/25 08:16 Home Medications ?Medication ?Instructions ?Recorded ?Confirmed ?Type calcium polycarbophil 625 mg 1,250 mg PO DAILY 04/12/24 02/19/25 History tablet (FiberCon) ondansetron 4 mg disintegrating 4 mg PO Q8H PRN nausea and vomiting 04/12/24 02/07/25 History tablet polyethylene glycol 3350 17 17 g PO DAILY PRN constipation 04/12/24 02/07/25 History gram/dose oral powder (Miralax) rizatriptan 10 mg tablet See Rx Instructions PO .COMPLEX 04/12/24 02/19/25 History PRN migraine headache loratadine 10 mg tablet (Claritin) 10 mg PO HS 02/07/25 02/19/25 History valacyclovir 1 gram tablet 1 mg PO DAILY PRN cold sores 02/07/25 02/19/25 History Patient hx anesthesia problems: other (panic attack with benzocaine spray) Family hx anesthesia problems: none Results Review: All pre-operative results and documents have been reviewed as part of the pre-operative evaluation. [facility] Past Medical History Medical History Obesity Diverticulosis Abnormal CT scan, colon Irritable bowel syndrome with constipation Colitis Vaginal delivery x 2 Stomach ulcer Surgical History Surgical History H/O sinus surgery History of hysterectomy including cervix History of tubal ligation History of dilation and curettage x 3 Family History Family History Father Hypertension Family history of congestive heart failure Social History Social History Smoking status: Never smoker Second hand tobacco smoke exposure: No Smoking end date: 09/11/10 Alcohol intake: current Drinks per week: 2 Alcohol use details: Vodka Substance use: never Substance use type: does not use Do You Feel Safe in your Home?: Yes Lack of Transportation: No Lack of Food: Never True Current Housing: I Have Housing Concerned About Future Housing: No Difficulty Paying Gas/Electric Bills: No Difficulty Paying for Meds: No Currently Unemployed: No Education: High School Diploma/GED Difficulty w/ Childcare or Family Care: No Living arrangements: with family Spiritual care concerns: No Anes - Eval Final PreProcedure Day of Procedure 02/19/25 08:31 Patient weight: obese Heart: regular rate and rhythm Lungs: clear to auscultation Airway: Mallampati scale class II Neurological: alert and oriented Last oral intake: >/= 8 hours ASA classification: II Emergent: no Anesthetic plan: proceed Anesthesia type and monitoring: general GIVS and standard monitoring Results Review: All pre-operative results and documents have been reviewed as part of the pre-operative evaluation. Informed Consent: The patient's anesthetic plan and its attendant risks and benefits were discussed with the patient/family/POA. Questions were solicited and answers provided to the satisfaction of the patient/family/POA.
--- NOTE | 2025-02-19 09:02 | PM.HPGS ---
History of Present Illness History of Present Illness Consent: Risks, benefits, and alternatives have been discussed and questions answered. Patient agrees to proceed with procedure. Chief complaint: Dysphagia, unspecified Narrative: Harriett Tolliver is a 44 year old female with dysphagia and choking sensation after eating Review of Systems Review of Systems: All systems reviewed & are unremarkable except as noted in HPI and below PMFSH Past Medical History Medical History (Updated 02/19/25 @ 09:02 by Mir Boo MD) Dysphagia Obesity Diverticulosis Abnormal CT scan, colon Irritable bowel syndrome with constipation Colitis Vaginal delivery x 2 Stomach ulcer Surgical History Surgical History H/O sinus surgery History of hysterectomy including cervix History of tubal ligation History of dilation and curettage x 3 Family History Family History Father Hypertension Family history of congestive heart failure Social History Social History Smoking status: Never smoker Second hand tobacco smoke exposure: No Smoking end date: 09/11/10 Alcohol intake: current Drinks per week: 2 Alcohol use details: Vodka Substance use: never Substance use type: does not use Do You Feel Safe in your Home?: Yes Lack of Transportation: No Lack of Food: Never True Current Housing: I Have Housing Concerned About Future Housing: No Difficulty Paying Gas/Electric Bills: No Difficulty Paying for Meds: No Currently Unemployed: No Education: High School Diploma/GED Difficulty w/ Childcare or Family Care: No Living arrangements: with family Spiritual care concerns: No Meds Home Medications and Allergies Home Medications ?Medication ?Instructions ?Recorded ?Confirmed ?Type calcium polycarbophil 625 mg 1,250 mg PO DAILY 04/12/24 02/19/25 History tablet (FiberCon) ondansetron 4 mg disintegrating 4 mg PO Q8H PRN nausea and vomiting 04/12/24 02/07/25 History tablet polyethylene glycol 3350 17 17 g PO DAILY PRN constipation 04/12/24 02/07/25 History gram/dose oral powder (Miralax) rizatriptan 10 mg tablet See Rx Instructions PO .COMPLEX 04/12/24 02/19/25 History PRN migraine headache loratadine 10 mg tablet (Claritin) 10 mg PO HS 02/07/25 02/19/25 History valacyclovir 1 gram tablet 1 mg PO DAILY PRN cold sores 02/07/25 02/19/25 History Allergies Allergy/AdvReac Type Severity Reaction Status Date / Time morphine Allergy Severe Itching Verified 02/19/25 08:16 Vital Signs Vital Signs - 24 hr 02/19/25 08:10 Temperature 97.8 F Pulse Rate 71 Respiratory Rate 16 Blood Pressure 148/90 H Pulse Oximetry 100 Oxygen Delivery Room Air Exam Const: General: comfortable and no acute distress HENMT: Face/Nose/Sinus: Normal nares present Eyes: General: appearance normal, both eyes and all related structures Neck: Neck: no JVD Resp: Auscultation: clear to auscultation bilaterally Cardio: Rate: regular rate Rhythm: regular rhythm GI: Inspection: non-distended GI Palp: Yes Soft to palpation Skin: General skin exam: normal color Neuro: General: gait normal Speech: normal speech Extrem: General: normal to inspection Psych: Mental Status: mental status grossly normal Assessment and Plan Assessment and plan (1) Dysphagia: Code(s): R13.10 - Dysphagia, unspecified Status: Acute Assessment and Plan: egd with bx
--- NOTE | 2025-02-19 09:10 | S_PTH ---
PATIENT: Harriett Tolliver LOC: [facility]#:[id number] AGE/SX: 44/F ROOM: RE02/19/[address]: Mir Boo MD : 1980 BED: DIS: 02/19/2025 SPEC #: [id number] RECD: 02/19/25 10:16 STATUS: TREVNO REIris #: [id number] ABDULKADIR: 02/19/25 09:[address]: Mir Boo DEPT: [facility] Surgical RECD BY: Liliam Mack ENTERED: 02/19/25 10:17 SP TYPE: Surgical OTHR DR: Roberto MarinaMD Tissues: A - Gastric Biopsy B - Esophageal Biopsy C - Esophageal Biopsy Procedures: Hematoxylin and Eosin Stain Gross and Microscopic Level 4
[2025-02-19 09:12] VITALS: BP 110/75; PULSE 82; RESP 20; O2SAT 98
[2025-02-19 09:22] VITALS: BP 118/93; PULSE 83; RESP 30; O2SAT 100
[2025-02-19 09:32] VITALS: BP 122/90; PULSE 68; RESP 16; O2SAT 100
== END 2025-02-19 09:40 | disposition home or self-care (01) ==
PROVIDERS: PCP Internal Medicine; Visit Provider Internal Medicine Gastroenterology
PROC: 0DJ08ZZ Inspection of Upper Intestinal Tract, Via Natural or Artificial Opening Endoscopic (ICD-10-PCS; CPT 43239; principal; 2025-02-19 09:15)
DX: K21.00 Gastro-esophageal reflux disease with esophagitis, without bleeding (principal); R13.10 Dysphagia, unspecified; E66.9 Obesity, unspecified; Z68.30 Body mass index [BMI] 30.0-30.9, adult
CPT/HCPCS: 43239; 43450; 88305; J2003; J2704; J7120